=== PATIENT | female | born 1955 | race Caucasian/White ===

== ENCOUNTER → 2017-12-27 14:04 | Outpatient (CLI) | payer SELFPAY ==
--- NOTE | 2017-12-27 14:11 | HPBI_ITS ---
MAMMOGRAPHY - BILATERAL SCREENING REASON FOR EXAM: Female, 62 years old. Routine annual screening examination. PERTINENT HISTORY: Grandmother with breast cancer. TECHNIQUE: Digital bilateral breast dusty (3D mammographic acquisition) in the CC and MLO projections. 2-D mediolateral oblique (MLO) and craniocaudad (CC) views of both breasts were obtained. CAD: Full Field Digital Mammography with Computer Added Detection was performed. COMPARISON: Comparison is made with prior study dated April 29, 2008. FINDINGS: Breast Composition: The breasts are almost entirely fatty. There are no dominant masses or suspicious calcifications. No other significant abnormalities are identified. There has been no significant change since the prior study. HPBI/SCREENING MAMM (CAD), BILAT IMPRESSION: Stable bilateral screening mammogram. Yearly follow-up mammogram recommended. (A) ASSESSMENT CATEGORY: BIRADS Category 1: Negative. A letter regarding these results will be sent to the patient by the facility within 30 days. Approximately 10% of breast cancers are not detected by mammography. A normal mammogram should not delay biopsy of a clinically suspicious abnormality. [id number] Electronically Signed: Rustam Smallwood MD at 8:03 EST Tel [phone], Service support ,
== END ==
PROVIDERS: Family Provider Family Medicine; PCP Family Medicine; Visit Provider Family Medicine
DX: Z12.31 Encounter for screening mammogram for malignant neoplasm of breast (principal)
CPT/HCPCS: 77063; 77067

== ENCOUNTER → 2018-04-22 08:33 | Outpatient (CLI) | payer SELFPAY ==
[2018-04-22 09:15] LABS: Absolute Lymphocyte Count 1.38 X10^3/ul (0.83-4.51); Absolute Neutrophil Count 3.5 X10^3/uL (2.0-7.7); Basophil# 0.06 X10^3/uL; Basophil% 1.1 % (0-1); Eosinophil# 0.18 X10^3/uL; Eosinophils% 3.2 % (0-5); Hematocrit 41.1 % (37-47); Hemoglobin 14.4 g/dl (12.0-15.0); Lymphocyte # 1.38 X10^3/ul (4.0); Lymphocyte % 24.6 % (19-41); Mean Corpuscular Hgb 30.4 pg (27.0-32.0); Mean Corpuscular Volume 86.9 fL (81-99); Mean Platelet Vol. 10.9 fl (6.2-12.0); Monocyte# 0.47 X10^3/uL; Monocyte% 8.4 % (0-10); Neutrophil # 3.51 X10^3/uL (2.7-7.7); Neutrophil % 62.5 % (47-70); Platelet Count 239 K/mm3 (150-450); RBC Distribution Width CV 12.1 % (11.6-14.6); RBC Distribution Width SD 37.9 fl (35.1-43.9); Red Blood Count 4.73 M/mm3 (4.2-5.4); White Blood Count 5.6 K/mm3 (4.4-11.0)
[2018-04-22 09:17] LABS: POSITIVE COUNT NO; POSITIVE DIFFERENTIAL NO; POSITIVE MORPHOLOGY NO
[2018-04-22 09:19] LABS: Color, Urine Yellow (Yellow); Glucose, Dipstick 1000 mg/dl (Normal); Ketone-Dipstick 15 mg/dl (Negative); Leukocyte Esterase-Dipstick 25 /ul (Negative); Nitrite-Dipstick Negative (Negative); Occult Blood-Urine 10 /ul (Negative); Protein-Dipstick 30 mg/dl (Negative); Urine Bilirubin Dipstick Negative (Negative); Urine Clarity Clear (Clear); Urine Urobilinogen Normal (Normal)
[2018-04-22 10:14] LABS: ALB/GLOB Ratio 0.9 RATIO (0.9-2.4); AST(SGOT) 15 U/L (15-37); Alanine Aminotransfer ALT/SGPT 19 U/L (13-56); Albumin, Serum 3.4 g/dL (3.2-5.0); Alkaline Phosphatase 112 U/L (45-117); Anion Gap 10 (5-15); BUN 19 mg/dL (7-18); BUN/Creat Ratio 19.9 RATIO (10-20); Calcium,Total 8.7 mg/dL (8.5-10.1); Chloride 103 mmol/L (98-107); Cholesterol 231 mg/dL (200); Creatinine, Serum 0.95 mg/dL (0.55-1.02); EST Glomerular Filtration Rate 63 mL/min (>60); Est Glom Filt Rate - Afr Amer 76 mL/min (>60); Globulin 3.8 g/dL (2.2-4.2); Glucose 301 mg/dL (74-106); High Density Lipoprotein 33 mg/dL; Protein, Total 7.2 g/dL (6.4-8.2); Sodium Level 140 mmol/L (136-145); Triglycerides 495 mg/dL
== END ==
LOC: LAB 08:35
PROVIDERS: Family Provider Family Medicine; PCP Family Medicine; Visit Provider Family Medicine
DX: Z00.00 Encounter for general adult medical examination without abnormal findings (principal); E11.9 Type 2 diabetes mellitus without complications; I10 Essential (primary) hypertension; E55.9 Vitamin D deficiency, unspecified
CPT/HCPCS: 36415; 80053; 80061; 81002; 82306; 83036; 85025

== ENCOUNTER → 2018-10-17 09:35 | Outpatient (CLI) | payer SELFPAY ==
[2018-10-17 12:13] LABS: Cholesterol 225 mg/dL (200); High Density Lipoprotein 39 mg/dL; Triglycerides 268 mg/dL; Uric Acid 5.5 mg/dL (2.6-6.0); Very Low Density Lipoprotein 54 mg/dL (5-40)
[2018-10-17 12:19] LABS: Vitamin D,25 Hydroxy 47.5 ng/mL (29.95-100.01)
[2018-10-17 12:20] LABS: Hemoglobin A1c 6.4 % (4.2-6.3)
== END ==
PROVIDERS: Family Provider Family Medicine; PCP Family Medicine; Referring Provider Family Medicine; Visit Provider Family Medicine
DX: E78.5 Hyperlipidemia, unspecified (principal); E55.9 Vitamin D deficiency, unspecified; E11.9 Type 2 diabetes mellitus without complications
CPT/HCPCS: 36415; 80061; 82306; 83036; 84550

== ENCOUNTER 2019-03-11 15:40 | Emergency (ER) | payer SELFPAY ==
[2019-03-11] VITALS (7 sets, daily range): BP systolic 153–198; BP diastolic 59–104; PULSE 74–96; RESP 15–17; TEMP 36.3; O2SAT 96–98; BMI 29.5
--- NOTE | 2019-03-11 15:57 | CT_ITS ---
STUDY: CT ABDOMEN AND PELVIS WITHOUT CONTRAST REASON FOR EXAM: Female, 63 years old. Right-sided flank pain. Patient has history of kidney stones. RADIATION DOSAGE (If Supplied By Facility): CTDIvol = ( 17.67 ) mGy, DLP = ( 900.77 ) mGycm TECHNIQUE: Transaxial images were obtained from the dome of the diaphragm to the symphysis pubis without oral contrast, and without intravenous contrast. Sagittal and coronal images were reconstructed. Individualized dose optimization techniques were used for this CT. COMPARISON: CT of the abdomen and pelvis dated June 22, 2013 FINDINGS: There are curvilinear opacities at the lung bases probably secondary to subsegmental atelectasis. The visualized portions of the heart are within normal limits. Normal liver. There is a fluid fluid level in the gallbladder suggesting there may be cholelithiasis or biliary sludge. Normal spleen. There is diffuse atrophy of the pancreas. Normal bilateral adrenal glands. There is mild right-sided hydronephrosis and hydroureter secondary to proximal ureteral calculus measuring approximately 7.6 mm in greatest dimension. There are also nonobstructing right-sided renal calculi. There is a large right-sided renal cyst rising from the posterior cortex measuring up to 4.2 cm in greatest dimension. There is nonobstructing calculus in the lower pole of the left kidney measuring up to 7.1 mm. There are smaller nonobstructing calculi as well. There is no evidence for left-sided hydronephrosis, hydroureter or radiopaque ureteral calculus. There is a small hiatal hernia. There is no evidence for dilated bowel, ascites or pneumoperitoneum. Stool is visible throughout the colon with scattered diverticula. The appendix is visualized and appears normal. There is multifocal atherosclerotic calcification of the abdominal aorta with elongation and tortuosity, but without a demonstrated aneurysm. Normal inferior vena cava. Normal retroperitoneum. Normal urinary bladder. Normal visualized uterus. There is a small umbilical hernia containing fat. The bones appear osteopenic. There is mild multilevel thoracic spondylosis of the thoracic spine. There is multilevel degenerative arthropathy of the lumbar spine. CT/Abdomen/Pelvis without Cont IMPRESSION: 1. There is mild right-sided hydronephrosis and hydroureter secondary to proximal ureteral calculus. 2. Bilateral nonobstructing renal calculi. 3. Right-sided renal cyst. 4. Small hiatal hernia. Electronically Signed: Cristina Pham MD at 17:22 EDT , Service support ,
--- NOTE | 2019-03-11 16:02 | ED.VISSUMM ---
- ER Visit Summary Date of Service: 03/11/19 Chief Complaint: Flank pain History of Present Illness: The patient is a 63 F with flank pain for the past 3 days. Patient also reports decreased urine output, nausea, vomiting, and feels hot. Denies any other urinary symptoms. Denies any other GI symptoms. She does have a history of kidney stones. Physical Examination: Blood pressure 198/104. Otherwise vitals normal. Patient alert and oriented. Appears uncomfortable. Heart regular. Lungs clear. Abdomen soft and nontender. Right CVA tender to palpation. Skin appears normal. Arms and legs unremarkable. Test Results: Labs, urinalysis, and CT flank are pending. Emergency Department Course and Treatment: Patient treated with fluids, Toradol, Zofran while awaiting results. CBC normal. Creatinine at baseline 1.74. Urinalysis still pending. CT showed a proximal ureter stone on the right, 7.6 mm with right-sided hydronephrosis and hydroureter. Patient had continued pain and then required Dilaudid. This made her feel dizzy and she had continued pain. She was treated with fentanyl. Given that we are having difficulty controlling her pain, I believe she needs hospitalized. Urology is not available at this time at this hospital. The patient requested [facility]. I spoke with Dr. Marrero who accepted the patient. It was discovered that the patient did not have insurance. [facility] declined the patient. I spoke with [facility] who accepted the patient. Treatment Plan: As above Disposition: Transfer Impression: 1. Right ureteral colic This note was generated with [employer] dictation software. It may contain incorrect words, spelling, and punctuation that were not noted in review of the chart prior to signing ED Disposition - Plan for ED Patient: Disposition: [facility] Referrals: Tyree Goldman MD [Primary Care Provider] -
[2019-03-11 16:10] LABS: Absolute Lymphocyte Count 1.32 X10^3/ul (0.83-4.51); Absolute Neutrophil Count 7.6 X10^3/uL (2.0-7.7); Basophil# 0.03 X10^3/uL; Basophil% 0.3 % (0-1); Eosinophil# 0.15 X10^3/uL; Eosinophils% 1.5 % (0-5); Hematocrit 37.5 % (37-47); Hemoglobin 12.7 g/dl (12.0-15.0); Lymphocyte # 1.32 X10^3/ul (4.0); Lymphocyte % 13.1 % (19-41); Mean Corp Hgb Conc 33.9 g/gl (32-36); Mean Corpuscular Hgb 29.7 pg (27.0-32.0); Mean Corpuscular Volume 87.6 fL (81-99); Mean Platelet Vol. 9.6 fl (6.2-12.0); Monocyte# 0.95 X10^3/uL; Monocyte% 9.4 % (0-10); Neutrophil # 7.63 X10^3/uL (2.7-7.7); Neutrophil % 75.5 % (47-70); Platelet Count 253 K/mm3 (150-450); RBC Distribution Width CV 12.5 % (11.6-14.6); RBC Distribution Width SD 39.9 fl (35.1-43.9); Red Blood Count 4.28 M/mm3 (4.2-5.4); White Blood Count 10.1 K/mm3 (4.4-11.0)
[2019-03-11 16:11] LABS: POSITIVE COUNT NO; POSITIVE DIFFERENTIAL NO; POSITIVE MORPHOLOGY NO
[2019-03-11] MEDS: 0.9% Normal Saline 1,000 ML 1000 ML IV (16:19)
[2019-03-11] MEDS: Ketorolac 30 MG/ML Syringe IV (16:19)
[2019-03-11] MEDS: Ondansetron 4 MG/2 ML Vial IV (16:19)
[2019-03-11 16:24] LABS: Anion Gap 8 (5-15); BUN 27 mg/dL (7-18); BUN/Creat Ratio 15.5 RATIO (10-20); Calcium,Total 9.3 mg/dL (8.5-10.1); Chloride 103 mmol/L (98-107); Creatinine, Serum 1.74 mg/dL (0.55-1.02); EST Glomerular Filtration Rate 31 mL/min (>60); Est Glom Filt Rate - Afr Amer 38 mL/min (>60); Estimated Creatinine Clearance 30.58 ml/min; Glucose 89 mg/dL (74-106); Potassium 4.1 mmol/L (3.5-5.1); Sodium Level 138 mmol/L (136-145)
[2019-03-11] MEDS: HYDROmorphone 1 MG/ML Syringe IV (17:54)
[2019-03-11 18:57] LABS: Color, Urine Yellow (Yellow); Glucose, Dipstick Normal (Normal); Ketone-Dipstick 15 mg/dl (Negative); Leukocyte Esterase-Dipstick 500 /ul (Negative); Nitrite-Dipstick Negative (Negative); Occult Blood-Urine 250 /ul (Negative); Protein-Dipstick 30 mg/dl (Negative); Specific Gravity, Urine 1.025 (1.002-1.030); Urine Bilirubin Dipstick Negative (Negative); Urine Clarity Cloudy (Clear); Urine Urobilinogen Normal (Normal)
[2019-03-11] MEDS: fentaNYL 100 MCG/2 ML Ampul 50 MCG IV (19:26)
[2019-03-11 20:01] LABS: Bacteria RARE /hpf (None Seen); Mucous, Urine 1+ /hpf (<or=2+); Red Blood Cells-Urine 10-25 SEEN /hpf (0-5); Squamous Epithelial Cells - UA 0-5 SEEN /hpf (5-10); White Blood Cells 10-25 SEEN /hpf (0-5)
--- NOTE | 2019-03-11 21:04 | ED.RN ---
[facility] UNABLE TO ACCEPT BECAUSE OF SELF-PAY. DR HERNANDEZ SPEAKING WITH [facility] AT THIS TIME
--- NOTE | 2019-03-11 21:37 | ED.RN ---
DR MATTA ACCEPTING
--- NOTE | 2019-03-11 22:38 | ED.RN ---
pt is transfer to [facility] by private vehicle. report called to crissy howard. IV was left in left ac for transport with dr machuca's permission. recieving facility aware. geronimo bennett rn [phone]
== END 2019-03-11 22:49 | disposition short-term general hospital (02) ==
PROVIDERS: Emergency Provider Emergency Medicine; Family Provider Family Medicine; PCP Family Medicine
DX: N13.2 Hydronephrosis with renal and ureteral calculous obstruction (principal); N28.1 Cyst of kidney, acquired; K44.9 Diaphragmatic hernia without obstruction or gangrene; E11.9 Type 2 diabetes mellitus without complications; I10 Essential (primary) hypertension; Z87.442 Personal history of urinary calculi; Z79.84 Long term (current) use of oral hypoglycemic drugs; Z79.899 Other long term (current) drug therapy
CPT/HCPCS: 74176; 80048; 81001; 85025; 96361; 96374; 96375; 99284; A4216; J2405

== ENCOUNTER → 2019-11-04 11:24 | Outpatient (CLI) | payer MEDICARE, SELFPAY ==
[2019-03-11 15:41] VITALS: BMI 29.5
[2019-11-04 12:42] LABS: Absolute Lymphocyte Count 1.56 X10^3/uL (0.83-4.51); Absolute Neutrophil Count 4.7 X10^3/uL (2.0-7.7); Basophil# 0.07 X10^3/uL; Eosinophil# 0.35 X10^3/uL; Eosinophils% 4.8 % (0-5); Hematocrit 36.6 % (37-47); Lymphocyte # 1.56 X10^3/ul (4.0); Lymphocyte % 21.5 % (19-41); Mean Corp Hgb Conc 32.8 g/dL (32-36); Mean Corpuscular Hgb 29.4 pg (27.0-32.0); Mean Corpuscular Volume 89.7 fL (81-99); Mean Platelet Vol. 10.3 fl (6.2-12.0); Monocyte# 0.61 X10^3/uL; Monocyte% 8.4 % (0-10); NRBC Flagged by Analyzer 0 % (0-5); Neutrophil # 4.65 X10^3/uL (2.7-7.7); Neutrophil % 63.9 % (47-70); Platelet Count 281 K/mm3 (150-450); RBC Distribution Width CV 11.9 % (11.6-14.6); RBC Distribution Width SD 38.6 fl (35.1-43.9); Red Blood Count 4.08 M/mm3 (4.2-5.4); White Blood Count 7.3 K/mm3 (4.4-11.0)
[2019-11-04 12:52] LABS: Color, Urine Yellow (Yellow); Glucose, Dipstick Normal (Normal); Ketone-Dipstick Negative (Negative); Leukocyte Esterase-Dipstick 25 /ul (Negative); Nitrite-Dipstick Negative (Negative); Occult Blood-Urine Negative /ul (Negative); Protein-Dipstick 15 mg/dl (Negative); Urine Bilirubin Dipstick Negative (Negative); Urine Clarity Clear (Clear); Urine Urobilinogen Normal (Normal)
[2019-11-04 13:05] LABS: Hemoglobin A1c 6.6 % (4.2-6.3); Vitamin D,25 Hydroxy 53.4 ng/mL (29.95-100.01)
== END ==
PROVIDERS: Family Provider Family Medicine; PCP Family Medicine; Referring Provider Family Medicine
DX: Z00.00 Encounter for general adult medical examination without abnormal findings (principal); I10 Essential (primary) hypertension; E55.9 Vitamin D deficiency, unspecified; E11.9 Type 2 diabetes mellitus without complications
CPT/HCPCS: 36415; 81002; 82306; 83036; 85025

== ENCOUNTER 2020-02-05 14:09 | Emergency (ER) | payer MEDICARE, SELFPAY ==
[2019-03-11 15:41] VITALS: BMI 29.5
[2020-02-05 14:10] VITALS: BP 150/86; PULSE 74; RESP 18; TEMP 36.1; O2SAT 97; BMI 32.3
--- NOTE | 2020-02-05 14:55 | ED.VIS.INJ ---
History of Present Illness Chief Complaint: Lower Extremity Injury Informant: Patient, Significant Other Onset: Hours Mechanism/Context: Blunt Injury Quality of Pain: Aching, Throbbing Location: Right and left leg and left ankle Current Severity: Mild Maximum Severity: Severe Worsened by: Palpation and weightbearing Relieved by: Nothing Associated Symptoms: Loss of function, Inability to ambulate. Negative for: Parasthesias, Weakness, Loss of consciousness, Amnesia Narrative: Patient is a 64-year-old woman with history of hypertension who was injured by a bull calf. The calf was agitated because he was deformed and castrated. Patient complains of pain and bruises to the right and left anterior leg and left ankle. She states she is unable to bear weight on the left side. She has significant pain on the right when she attempts to bear weight. She declined pain medicine. She denies paresthesia, anesthesia motors. She denies thigh or hip pain. Denies pelvic pain. Denies abdominal pain. There is no injury to the chest, back, upper extremities or head. She is not on an anticoagulant. This occurred prior to arrival. Tetanus Immunization: 5-10 years Prior similar symptoms: No Recent Illness/Hospitalization: No - Past Medical History (1) Hypertension Status: Chronic Past Medical History - Allergies and Home Meds Allergies/Adverse Reactions: Allergies acetaminophen [From Vicodin] Allergy (Verified 01/02/16 16:08) Chest tightness hydrocodone bitartrate [From Vicodin] Allergy (Verified 01/02/16 16:08) Chest tightness Primary Care Physician: Tyree Goldman MD [Primary Care Provider] - Prior records reviewed: Yes Surgical History: noncontributory Lives: Spouse/ Significant Other Smoking Status: Never smoker Alcohol: None Drugs: None Review of Systems General: Denies: Chills, Fever, Sweats Eyes: Denies: Visual changes - bilaterally, Blurred Vision - bilaterally ENT: Denies: Rhinorrhea, Sore throat Cardiovascular: Denies: Chest pain, Palpitations Respiratory: Denies: Dyspnea, Dyspnea on exertion Gastrointestinal: Denies: Abdominal pain, Nausea, Vomiting Musculoskeletal: Reports: Swelling, Extremity Pain. Denies: Myalgias, Arthralgias, Neck pain, Back pain Skin: Reports: Wounds - Multiple contusions anterior right and left leg.. Denies: Rash Neurological: Denies: Headache, Weakness, Parasthesia, Numbness Psych: Denies: Depression Endocrine: Denies: Polyuria, Polydipsia Hematologic: Denies: Easy bruising, Easy bleeding Allergy: Denies: Uticaria Physical Exam Vital Signs/Narrative: Vital Signs Temp Pulse Resp BP Pulse Ox 02/05/20 14:10 97.0 F L 74 18 150/86 H 97 Inital Vital Signs reviewed: Yes General: Well nourished, Well developed, Obese Head: Normocephalic, Atraumatic. Negative for: Trauma, Tenderness Eyes: Perrl, EOMI. Negative for: Pale conjunctiva, Scleral icterus ENT: TM's clear, No hemotympanum or drainage, No trauma Neck: Nontender, Full ROM. Negative for: Spinal Tenderness, Paraspinal Tenderness Cardiovascular: Regular rate, Regular rhythm, No murmurs, Normal S1, Normal S2 Respiratory: No distress, CTA bilaterally, Chest nontender Abdomen: Soft, Nontender, Nondistended, Normal bowel sounds Back: Nontender. Negative for: CVA Tenderness - Right, CVA Tenderness - Left Extremeties: Has multiple contusions anterior right and left leg. There is pain palpation over the fibular head right and left. Greater on the right side. There is significant pain over the lateral malleolus left ankle. There is no laxity with drawer testing either side. There is pain outpatient over the medial malleolus both sides. There is no abnormality noted the foot. There is no swelling or evidence of trauma. DP pulses palpable bilaterally. There is no pain the patient the base of the fifth metatarsal. Skin: Normal color, No rash Neurological: Alert, Oriented x3, Cranial nerves II-XII grossly intact, Normal Strength, Normal Sensation Psychological: Normal affect - Glascow Coma Scale Eye Opening: Spontaneous Motor: Obeys Commands Verbal: Oriented Coma Scale Total: 15 Diagnostic/Tx/Re-eval Chest X-Ray - ED: Read by ED Physician, - - Three-view x-ray of the left ankle reveals osteophyte of the medial malleolus and soft tissue swelling. There is no months of fracture, subluxation or dislocation. There is no effusion. The base of the fifth metatarsal is normal. 2 view x-ray of the left and right tibia and fibula were obtained with no evidence of fracture or soft tissue swelling. - Medical Decision Making Since patient is unable to bear weight and there is evidence of trauma to the right and left leg as well as left ankle images were obtained to evaluate for contusion versus fracture. ED Disposition - Plan for ED Patient: Disposition: Home or Assisted Living Instructions: CONTUSION, Lower Extremity, Sprain, Ankle, with X-Ray Referrals: Tyree Goldman MD [Primary Care Provider] - 1 Week if not improving
--- NOTE | 2020-02-05 15:00 | RAD_ITS ---
STUDY: X-RAY - RIGHT TIBIA AND FIBULA REASON FOR EXAM: Female, 64 years old. PT RAN OVER BY A BULL TWICE TODAY. BILATERAL LOWER EXTREMITY PAIN/EDEMA. N/T LEFT TOES TECHNIQUE: 2 view(s) of the tibia and fibula were obtained. COMPARISON: None. FINDINGS: Normal visualized tibia. Normal visualized fibula. Posterior soft tissue swelling RAD/Tibia & Fibula 2 Views IMPRESSION: Posterior soft tissue swelling. Electronically Signed: Rustam Smallwood, at 15:48 EDT , Service support ,
--- NOTE | 2020-02-05 15:00 | RAD_ITS ---
STUDY: X-RAY - LEFT ANKLE REASON FOR EXAM: Female, 64 years old. PT RAN OVER BY A BULL TWICE TODAY. BILATERAL LOWER EXTREMITY PAIN/EDEMA. N/T LEFT TOES TECHNIQUE: 3 view(s) of the ankle. COMPARISON: None. FINDINGS: Normal visualized distal tibia and fibula. Normal medial and lateral malleoli. Degenerative changes at the tibial talar joint with spur formation. Plantar spur. Talar beak. The visualized subtalar, talonavicular, calcaneocuboid and tarsal articulations are normal. Soft tissue swelling. RAD/Ankle min 3 Views IMPRESSION: Soft tissue swelling. Degenerative changes at the distal tibial talar joint. Electronically Signed: Rustam Smallwood, at 15:49 EDT , Service support ,
--- NOTE | 2020-02-05 15:00 | RAD_ITS ---
STUDY: X-RAY - LEFT TIBIA AND FIBULA REASON FOR EXAM: Female, 64 years old. PT RAN OVER BY A BULL TWICE TODAY. BILATERAL LOWER EXTREMITY PAIN/EDEMA. N/T LEFT TOES TECHNIQUE: 2 view(s) of the tibia and fibula were obtained. COMPARISON: None. FINDINGS: Normal visualized tibia. Normal visualized fibula. Soft tissue swelling. RAD/Tibia & Fibula 2 Views IMPRESSION: Soft tissue swelling. Electronically Signed: Rustam Smallwood, at 15:48 EDT , Service support ,
== END 2020-02-05 15:49 | disposition home or self-care (01) ==
PROVIDERS: Emergency Provider Emergency Medicine; PCP Family Medicine
DX: S93.492A Sprain of other ligament of left ankle, initial encounter (principal); S80.11XA Contusion of right lower leg, initial encounter; S80.12XA Contusion of left lower leg, initial encounter; E66.9 Obesity, unspecified; W55.22XA Struck by cow, initial encounter; Y93.9 Activity, unspecified; Y92.9 Unspecified place or not applicable; I10 Essential (primary) hypertension; Z79.899 Other long term (current) drug therapy
CPT/HCPCS: 73590; 73610; 99282

== ENCOUNTER 2020-04-19 22:11 | Inpatient (IN) | payer MEDICARE, SELFPAY ==
[2020-04-19 22:11] VITALS: BP 182/101; PULSE 87; RESP 18; TEMP 35.9; O2SAT 93; BMI 32.6
--- NOTE | 2020-04-19 22:40 | ED.DCSUM_ITS ---
History of Present Illness Chief Complaint: Abd Pain Narrative: Patient is a 64-year-old female who presents with abdominal pain. This is been present for couple of days. Her pain is in the mid left abdomen and does radiate to the flank. She currently rates it as 10 out of 10. It is relieved with applying some pressure. She denies any associated symptoms such as fevers nausea vomiting diarrhea dysuria frequency urgency. She has a history of prior kidney stones but notes that this does not feel similar. She has never had pain like this before. She denies recent illness. She has a history of laparoscopy but no other abdominal surgeries. No history of diverticulitis. Past Medical History - Allergies and Home Meds Allergies/Adverse Reactions: Allergies acetaminophen [From Vicodin] Allergy (Verified 04/19/20 22:21) Chest tightness hydrocodone bitartrate [From Vicodin] Allergy (Verified 04/19/20 22:21) Chest tightness Primary Care Physician: Tyree Goldman MD [Primary Care Provider] - Past Medical History: - - Diabetes, hypertension, hyperlipidemia Surgical History: noncontributory Smoking Status: Never smoker Review of Systems All systems negative except as indicated General: Denies: Fever Eyes: Denies: Visual changes - bilaterally ENT: Denies: Bilateral ear pain Cardiovascular: Denies: Chest pain Respiratory: Denies: Dyspnea Gastrointestinal: Reports: Abdominal pain. Denies: Nausea, Vomiting, Diarrhea Musculoskeletal: Denies: Extremity Pain Skin: Denies: Rash Neurological: Denies: Headache Hematologic: Denies: Easy bruising Allergy: Denies: Uticaria Physical Exam Vital Signs/Narrative: Vital Signs Temp Pulse Resp BP Pulse Ox 04/19/20 22:11 96.6 F L 87 18 182/101 H 93 Inital Vital Signs reviewed: Yes General: Well nourished, Well developed Head: Normocephalic Eyes: EOMI ENT: Moist mucous membranes Neck: Supple Cardiovascular: Regular rate, Regular rhythm Respiratory: No distress, CTA bilaterally Abdomen: Soft, Tender - Mid left abdominal tenderness. Negative for: Guarding, Rebound tenderness Back: Nontender. Negative for: CVA tenderness Skin: Normal color Neurological: Alert Psychological: Normal affect Diagnostic/Tx/Re-eval Impressions Abdomen/Pelvis CT 04/20/20 00:30 IMPRESSION: There are bilateral kidney stones. There is an 8 mm stone in the proximal LEFT ureter causing moderate LEFT hydronephrosis. There is a 4.6 cm cyst in the RIGHT kidney. Normal visualized stomach. Normal small intestine. Normal colon. The appendix is visualized and appears normal. Uterus is intact. There is NO ascites, free air, abscess or adenopathy. Electronically Signed: Glenn Murphy MD at 0:58 EDT , Service support , 04/20/20 00:30 Abdomen/Pelvis WITH Contrast [CT] Stat Laboratory Results 04/19/20 04/19/20 04/19/20 22:20 22:20 22:25 WBC 10.6 RBC 4.31 Hgb 12.6 Hct 38.5 MCV 89.3 MCH 29.2 MCHC 32.7 RDW Std Deviation 39.8 RDW Coeff of Jessica 12.1 Plt Count 297 MPV 10.3 Immature Gran % (Auto) 0.300 Neut % (Auto) 70.4 H Lymph % (Auto) 17.4 L [place] % (Auto) 8.3 Eos % (Auto) 2.9 Baso % (Auto) 0.7 Absolute Neuts (auto) 7.5 Absolute Lymphs (auto) 1.84 Nucleated RBC % 0 Sodium 142 Potassium 4.0 Chloride 107 Carbon Dioxide 28.0 Anion Gap 7 BUN 21 H Creatinine 1.60 H Estim Creat Clear Calc 32.82 Est GFR (MDRD) Af Amer 42 L Est GFR (MDRD) Non-Af 34 L BUN/Creatinine Ratio 13.1 Glucose 102 Calcium 9.5 Total Bilirubin 0.40 AST 17 ALT 23 Alkaline Phosphatase 88 Total Protein 7.7 Albumin 3.7 Globulin 4.0 Albumin/Globulin Ratio 0.9 Lipase 207 Urine Color Yellow Urine Clarity Sl. Cloudy Urine pH 5.0 Ur Specific [place] 1.015 Urine Protein 15 H Urine Glucose (UA) Normal Urine Ketones Negative Urine Occult Blood 250 H Urine Nitrite Negative Urine Bilirubin Negative Urine Urobilinogen Normal Ur Leukocyte Esterase 500 H Urine RBC 10-25 SEEN Urine WBC 25-50 SEEN Ur Squamous Epith Cells 0-5 SEEN Urine Bacteria RARE Urine Mucus 0 SEEN - Medical Decision Making Initial suspicion was for diverticulitis. A CT with oral and IV contrast was ordered. Laboratory studies and CT imaging as above. Patient has a large proximal left ureteral calculus. She was initially given morphine and Zofran with little to no change in her symptoms. She was given 15 mg of IV Toradol and had mild improvement in pain from 10 out of 10 down to 7 out of 10. Given the size and location of the calculus and significant pain despite morphine and Toradol she will likely need intervention. I did speak to urology on-call who agrees to admit. Her urinalysis initially does show pyuria and she was given IV Rocephin. ED Disposition - Plan for ED Patient: Disposition: [facility] [place] Diagnosis: Left ureteral calculus Referrals: Tyree Goldman MD [Primary Care Provider] -
[2020-04-19] MEDS: Ondansetron 4 MG/2 ML Vial IV (22:53)
[2020-04-19] MEDS: 0.9% Normal Saline 1,000 ML 1000 ML IV (22:53)
[2020-04-19] MEDS: Morphine 4 MG/ML Syringe IV (22:54)
[2020-04-19 22:57] LABS: Mucous, Urine 0 SEEN /hpf (<or=2+)
[2020-04-19 23:00] LABS: Absolute Lymphocyte Count 1.84 X10^3/uL (0.83-4.51); Absolute Neutrophil Count 7.5 X10^3/uL (2.0-7.7); Basophil# 0.07 X10^3/uL; Basophil% 0.7 % (0-1); Eosinophil# 0.31 X10^3/uL; Eosinophils% 2.9 % (0-5); Hematocrit 38.5 % (37-47); Hemoglobin 12.6 g/dL (12.0-15.0); Lymphocyte # 1.84 X10^3/ul (4.0); Lymphocyte % 17.4 % (19-41); Mean Corp Hgb Conc 32.7 g/dL (32-36); Mean Corpuscular Hgb 29.2 pg (27.0-32.0); Mean Corpuscular Volume 89.3 fL (81-99); Mean Platelet Vol. 10.3 fl (6.2-12.0); Monocyte# 0.88 X10^3/uL; Monocyte% 8.3 % (0-10); NRBC Flagged by Analyzer 0 % (0-5); Neutrophil # 7.45 X10^3/uL (2.7-7.7); Neutrophil % 70.4 % (47-70); Platelet Count 297 K/mm3 (150-450); RBC Distribution Width CV 12.1 % (11.6-14.6); RBC Distribution Width SD 39.8 fl (35.1-43.9); Red Blood Count 4.31 M/mm3 (4.2-5.4); White Blood Count 10.6 K/mm3 (4.4-11.0)
[2020-04-19 23:04] LABS: Color, Urine Yellow (Yellow); Glucose, Dipstick Normal (Normal); Ketone-Dipstick Negative (Negative); Leukocyte Esterase-Dipstick 500 /ul (Negative); Nitrite-Dipstick Negative (Negative); Occult Blood-Urine 250 /ul (Negative); Protein-Dipstick 15 mg/dl (Negative); Specific Gravity, Urine 1.015 (1.002-1.030); Urine Bilirubin Dipstick Negative (Negative); Urine Clarity Sl. Cloudy (Clear); Urine Urobilinogen Normal (Normal)
[2020-04-19 23:10] LABS: ALB/GLOB Ratio 0.9 RATIO (0.9-2.4); AST(SGOT) 17 U/L (15-37); Alanine Aminotransfer ALT/SGPT 23 U/L (13-56); Albumin, Serum 3.7 g/dL (3.2-5.0); Alkaline Phosphatase 88 U/L (45-117); Anion Gap 7 (5-15); BUN 21 mg/dL (7-18); BUN/Creat Ratio 13.1 RATIO (10-20); Calcium,Total 9.5 mg/dL (8.5-10.1); Chloride 107 mmol/L (98-107); EST Glomerular Filtration Rate 34 mL/min (>60); Est Glom Filt Rate - Afr Amer 42 mL/min (>60); Estimated Creatinine Clearance 32.82 ml/min; Glucose 102 mg/dL (74-106); Lipase 207 U/L (73-393); Protein, Total 7.7 g/dL (6.4-8.2); Sodium Level 142 mmol/L (136-145)
[2020-04-19 23:16] LABS: White Blood Cells 25-50 SEEN /hpf (0-5)
[2020-04-19 23:17] LABS: Bacteria RARE /hpf (None Seen); Red Blood Cells-Urine 10-25 SEEN /hpf (0-5); Squamous Epithelial Cells - UA 0-5 SEEN /hpf (5-10)
[2020-04-20] VITALS (7 sets, daily range): BP systolic 146–172; BP diastolic 74–95; PULSE 61–75; RESP 15–18; TEMP 36.6–37; O2SAT 95–99; BMI 32.6; BMI 32.7
--- NOTE | 2020-04-20 00:30 | CT_ITS ---
STUDY: CT ABDOMEN AND PELVIS WITH CONTRAST REASON FOR EXAM: Female, 64 years old. LT MID ABD AND flank pain today. Hx of kidney stones with lithotripsy, HTN and diabetes RADIATION DOSAGE (If Supplied By Facility): CTDIvol = ( 18.95 ) mGy, DLP = ( 2098.63 ) mGycm TECHNIQUE: Transaxial images were obtained from the dome of the diaphragm to the symphysis pubis without oral contrast. Oral and amp; IV Gastrografin and amp; 75mL Isovue-370 was administered. Sagittal and coronal images were reconstructed. Individualized dose optimization techniques were used for this CT. COMPARISON: None. FINDINGS: The visualized lung bases are unremarkable. The visualized portions of the heart are within normal limits. Normal liver. Normal gallbladder and extrahepatic biliary system. Normal spleen. Normal pancreas. Normal bilateral adrenal glands. There are bilateral kidney stones. There is an 8 mm stone in the proximal LEFT ureter causing moderate LEFT hydronephrosis. There is a 4.6 cm cyst in the RIGHT kidney. Normal visualized stomach. Normal small intestine. Normal colon. The appendix is visualized and appears normal. Normal abdominal aorta. Normal inferior vena cava. Normal retroperitoneum. Normal urinary bladder. Uterus is intact. There is NO ascites, free air, abscess or adenopathy. Normal abdominal wall. Normal osseous structures. CT/Abdomen/Pelvis WITH Contrast IMPRESSION: There are bilateral kidney stones. There is an 8 mm stone in the proximal LEFT ureter causing moderate LEFT hydronephrosis. There is a 4.6 cm cyst in the RIGHT kidney. Normal visualized stomach. Normal small intestine. Normal colon. The appendix is visualized and appears normal. Uterus is intact. There is NO ascites, free air, abscess or adenopathy. Electronically Signed: Glenn Murphy MD at 0:58 EDT , Service support ,
[2020-04-20] MEDS: Ketorolac 15 MG/ML Vial IV ×4 (00:45→23:19)
[2020-04-20] MEDS: Ceftriaxone 1 GM/50 ML BAG IV (01:31)
[2020-04-20] MEDS: 0.9% Normal Saline 1,000 ML 100 ML IV ×3 (04:59→23:20)
--- NOTE | 2020-04-20 06:00 | EKG12_ITS ---
Test Reason : PREOP Blood Pressure : / mmHG Vent. Rate : 060 BPM Atrial Rate : 060 BPM P-R Int : 162 ms QRS Dur : 092 ms QT Int : 448 ms P-R-T Axes : 051 -04 003 degrees QTc Int : 448 ms Normal sinus rhythm Normal ECG No previous ECGs available Confirmed by IVA FELDER, LEN ([id number]), news assignment editor ANOTNIO VALDEZ ([id number]) on 04/25/2020 11:35:08 AM Referred By: Evaristo Downing Confirmed By:ANGELA ENRIQUE MD
[2020-04-20 06:45] LABS: Bedside Glucose 84 mg/dL (70-110)
--- NOTE | 2020-04-20 07:53 | PCM.HP.STD ---
Problem List (1) Left ureteral calculus Status: Acute History of Present Illness Date of Admission: 04/20/20 Chief Complaint: Left obstructing kidney stone The patient is a 64 year old female who presents with a large proximal left ureteral calculi causing hydronephrosis and obstruction she was admitted for pain control she is also diabetic. Past Medical History Past Medical History (Chronic Problems): Chronic Problems Hypertension (Chronic) Allergies acetaminophen [From Vicodin] Allergy (Verified 04/20/20 04:06) Chest tightness pt can take regular Tylenol but not Vicodin hydrocodone bitartrate [From Vicodin] Allergy (Verified 04/19/20 22:21) Chest tightness Home Medications: Ambulatory Orders Medication Instructions Recorded Ergocalciferol [Vitamin D] 50,000 unit PO TH 03/11/19 Glimepiride 4 mg PO DAILY 03/11/19 Lisinopril [Zestril] 10 mg PO DAILY 03/11/19 Metformin HCl 1,000 mg PO DAILY 03/11/19 Allopurinol [Zyloprim] 300 mg PO DAILY 02/05/20 Sertraline HCl [Zoloft] 25 mg PO DAILY 02/05/20 Amlodipine [Norvasc] 5 mg PO DAILY 04/19/20 Hydrocodone Bitart/Apap 5-325 1 tab PO Q4H PRN PRN 04/20/20 [[place] 5MG-325MG] Surgical History: noncontributory Psychiatric History: No pertinent psych hx GYM MANAGER History: No pertinent GYM MANAGER history Lives: With Family Smoking Status: Never smoker Tobacco Use: Non-smoker Alcohol: None Drugs: None - *Family History Maternal History Items: No pertinent history Review of Systems Constitutional: Denies: Chills, Fever, Weight Change HEENT: Denies: Head Aches, Sinus Congestion, Sinus Drainage Cardiovascular: Denies: Chest Pain, Palpitations Respiratory: Denies: Cough, Shortness of breath at rest, Sputum production Gastrointestinal: Denies: Abdominal Pain, Nausea, Vomiting Genitourinary: Denies: Dysuria Musculoskeletal: Denies: Joint Pain, Joint Tenderness Skin: Denies: Rash, Wounds Neurological: Denies: Numbness, Tingling, Focal weakness Psychiatric: Denies: Anxiety, Depression, Homicidal Ideations, Suicidal Ideations Hematologic/ Lymphatic: Denies: Easy Bruising, Easy Bleeding VTE Information - Inpt Only VTE Present on Admission: No VTE Mechan Device Prophylaxis: SCD's Patient Problems: Active and Suspected Problems Left ureteral calculus (Acute) - Physical Exam Vitals/I&O's: Vital Signs Temp Pulse Resp BP Pulse Ox 97.8 F 61 15 165/84 H 99 04/20/20 04:29 04/20/20 04:29 04/20/20 04:29 04/20/20 04:29 04/20/20 04:29 Oxygen Delivery Method Room Air Weight: 91.8 kg Body Mass Index (BMI) 32.6 Intake and Output for Last 24 Hours 04/18/20 04/19/20 04/20/20 23:59 23:59 23:59 Intake Total 1000 / 1000 50 / 50 Balance 1000 / 1000 50 / 50 General: Alert, Oriented x3, Cooperative HEENT: Atraumatic, PERRLA, EOMI, Normocephalic Neck: Supple, No JVD, Negative Carotid Bruits Lungs: Clear to auscultation, Normal air movement Cardiovascular: Regular rate, No murmurs Abdomen: Bowel Sounds Present, Soft, Non Tender Extremities: No edema, Capillary Refill Less than 3 Seconds Skin: No rashes, No breakdown Musculoskeletal: No Tenderness to Palpation of Joints or Extremities Neurological: Cranial nerves II-XII grossly intact Psych/Mental Status: Normal Affect, Appropriate Microbiology Past 72 Hours 04/20/20 01:35 Mucosa - Nasopharyngeal Coronavirus COVID-19 PCR - Final Laboratory Results 04/19/20 22:20: WBC 10.6, RBC 4.31, Hgb 12.6, Hct 38.5, MCV 89.3, MCH 29.2, MCHC 32.7, RDW Std Deviation 39.8, RDW Coeff of Jessica 12.1, Plt Count 297, MPV 10.3, Immature Gran % (Auto) 0.300, Neut % (Auto) 70.4 H, Lymph % (Auto) 17.4 L, [place] % (Auto) 8.3, Eos % (Auto) 2.9, Baso % (Auto) 0.7, Absolute Neuts (auto) 7.5, Absolute Lymphs (auto) 1.84, Nucleated RBC % 0 04/19/20 22:20: Sodium 142, Potassium 4.0, Chloride 107, Carbon Dioxide 28.0, Anion Gap 7, BUN 21 H, Creatinine 1.60 H, Estim Creat Clear Calc 32.82, Est GFR (MDRD) Af Amer 42 L, Est GFR (MDRD) Non-Af 34 L, BUN/Creatinine Ratio 13.1, Glucose 102, Calcium 9.5, Total Bilirubin 0.40, AST 17, ALT 23, Alkaline Phosphatase 88, Total Protein 7.7, Albumin 3.7, Globulin 4.0, Albumin/Globulin Ratio 0.9, Lipase 207 04/19/20 22:25: Urine Color Yellow, Urine Clarity Sl. Cloudy, Urine pH 5.0, Ur Specific [place] 1.015, Urine Protein 15 H, Urine Glucose (UA) Normal, Urine Ketones Negative, Urine Occult Blood 250 H, Urine Nitrite Negative, Urine Bilirubin Negative, Urine Urobilinogen Normal, Ur Leukocyte Esterase 500 H, Urine RBC 10-25 SEEN, Urine WBC 25-50 SEEN, Ur Squamous Epith Cells 0-5 SEEN, Urine Bacteria RARE, Urine Mucus 0 SEEN 04/20/20 06:42: POC Glucose 84 04/20/20 06:59: Hemoglobin A1c Pending Current Medications Hydrocodone Bitart/Acetaminophen ([place] 5mg-325mg) tablet PO Q4H PRN PRN PRN Reason: P Allopurinol (Zyloprim) 300 mg PO DAILY [facility] Amlodipine Besylate (Norvasc) 5 mg PO DAILY [facility] Ergocalciferol (Vitamin D) 50,000 unit PO TH [facility] Glimepiride (Amaryl) 4 mg PO DAILY [facility] Sodium Chloride () 1,000 mls @ 100 mls/hr IV .Q10H [facility] Last Admin: 04/20/20 04:59 Dose: 100 mls/hr Documented by: Ketorolac Tromethamine (Toradol (Bkc)) 15 mg IV Q6H PRN PRN PRN Reason: Pain Score 1-10/10 Stop: 04/25/20 04:20 Last Admin: 04/20/20 04:59 Dose: 15 mg Documented by: Lisinopril (Zestril) 10 mg PO DAILY [facility] Metformin HCl (Glucophage) 1,000 mg PO DAILY [facility] Morphine Sulfate () 2 mg IV Q2H PRN PRN PRN Reason: Pain Score 6-10/10 Non-Formulary Medication (Sertraline Hcl) 25 mg PO DAILY [facility] Ondansetron HCl (Zofran) 4 mg IV Q6H PRN PRN PRN Reason: NAUSEA/VOMITING Sodium Chloride () 10 - 40 ml IV UD PRN PRN Reason: SALINE FLUSH Assessment/Plan All Active Problems Left ureteral calculus (Acute) Sprain of ankle or foot, right (Acute) Admit the patient for pain control, she can have a regular diet today, should be added on for the schedule for tomorrow for cystoscopy and left stent placement. We will check a KUB in the morning to see the stone has moved.
[2020-04-20 08:06] LABS: Hemoglobin A1c 5.9 % (3.8-5.6)
--- NOTE | 2020-04-20 08:34 | CASEMGMT ---
Social Work Note Per dean of admissions questions, pt has completed HCPOA and LW but haven't provided copy to [facility] and unable to bring in copy. Emelina Lee BREAD JOCKEY, TIRE MAKER
[2020-04-20] MEDS: metFORMIN HCl 500 MG Tablet 1000 MG PO (09:16)
[2020-04-20] MEDS: Sertraline 50 MG Tablet 25 MG PO (09:16)
[2020-04-20] MEDS: amLODIPine 5 MG Tablet PO (09:17)
[2020-04-20] MEDS: Glimepiride 4 MG Tablet PO (09:17)
[2020-04-20] MEDS: Allopurinol 300 MG Tablet PO (09:17)
[2020-04-20] MEDS: Lisinopril 10 MG Tablet PO (09:17)
[2020-04-20] MEDS: 0.9% Saline Lock 10 ML Syringe IV (13:45)
[2020-04-21] VITALS (8 sets, daily range): BP systolic 131–166; BP diastolic 71–76; PULSE 64–69; RESP 16–18; TEMP 36.5–37; O2SAT 94–98; BMI 32.6
[2020-04-21] MEDS: Ketorolac 15 MG/ML Vial IV (05:53)
[2020-04-21] MEDS: Dextrose 50%-Water 25 GM/50 ML DISP.SYRIN IV (06:07)
[2020-04-21 06:30] LABS: Bedside Glucose 60 mg/dL (70-110)
[2020-04-21 06:30] LABS: Bedside Glucose 107 mg/dL (70-110)
--- NOTE | 2020-04-21 07:00 | RAD_ITS ---
STUDY: X-RAY - ABDOMEN/PELVIS REASON FOR EXAM: Female, 64 years old. LT SIDE K.S. TECHNIQUE: Single AP view of the abdomen / pelvis. COMPARISON: Comparison is made with prior examination dated September 04, 2011. FINDINGS: Normal visualized lung bases. Large amount of oral contrast is seen within the right hemicolon limiting the examination. Questionable 7 mm calculus overlying the transverse processes of the L3 vertebrae on the left side. There are calcified phleboliths in the pelvis. There are diffuse degenerative changes of the visualized lumbar spine. RAD/Abdomen Single View IMPRESSION: Limited examination due to large amount of bowel overlying the right hemicolon. Possible 7 mm calculus in the midportion of the left ureter overlying the L3 transverse process. Electronically Signed: Rustam Smallwood, at 8:29 EDT , Service support ,
--- NOTE | 2020-04-21 07:16 | PN_ITS ---
Patient Problems: Active and Suspected Problems Left ureteral calculus (Acute) Subjective: blood surgar low today will hold DM meds, add D to IV - Physical Exam Vitals/I&O's: Vital Signs Temp Pulse Resp BP Pulse Ox 98.3 F 69 18 148/71 H 96 04/21/20 02:13 04/21/20 02:13 04/21/20 02:13 04/21/20 02:13 04/21/20 02:13 Oxygen Delivery Method Room Air Weight: 91.8 kg Body Mass Index (BMI) 32.6 Intake and Output for Last 24 Hours 04/19/20 04/20/20 04/21/20 23:59 23:59 23:59 Intake Total 1000 / 1000 2385.00 / 2385.00 Output Total 400 / 400 900 / 900 Balance 1000 / 1000 1985.00 / 1985.00 -900 / -900 General: Alert, Oriented x3, Cooperative HEENT: Atraumatic, PERRLA, EOMI, Normocephalic Neck: Supple, No JVD, Negative Carotid Bruits Lungs: Clear to auscultation, Normal air movement Cardiovascular: Regular rate, No murmurs Abdomen: Bowel Sounds Present, Soft, Non Tender Extremities: No edema, Capillary Refill Less than 3 Seconds Skin: No rashes, No breakdown Musculoskeletal: No Tenderness to Palpation of Joints or Extremities Neurological: Cranial nerves II-XII grossly intact Psych/Mental Status: Normal Affect, Appropriate Microbiology Past 72 Hours 04/20/20 01:35 Mucosa - Nasopharyngeal Coronavirus COVID-19 PCR - Final Laboratory Results 04/20/20 06:59: Hemoglobin A1c 5.9 H 04/21/20 05:55: POC Glucose 60 L 04/21/20 06:26: POC Glucose 107 Current Medications Hydrocodone Bitart/Acetaminophen ([place] 5mg-325mg) 1 tablet PO Q4H PRN PRN PRN Reason: Pain Score 1-10/10 Allopurinol (Zyloprim) 300 mg PO DAILY [facility] Last Admin: 04/20/20 09:17 Dose: 300 mg Documented by: Amlodipine Besylate (Norvasc) 5 mg PO DAILY [facility] Last Admin: 04/20/20 09:17 Dose: 5 mg Documented by: Dextrose (D50w Syringe) 0 gm IV X1 PRN; Protocol PRN Reason: Hypoglycemia Last Admin: 04/21/20 06:07 Dose: 12.5 gm Documented by: Ergocalciferol (Vitamin D) 50,000 unit PO Th@1000 [facility] Glucagon () 1 mg IM .X1 PRN PRN Reason: Hypoglycemia Potassium Chloride 10 meq/ (Dextrose/Sodium Chloride) 1,005 mls @ 75 mls/hr IV .[id number] [facility] Ketorolac Tromethamine (Toradol (Bkc)) 15 mg IV Q6H PRN PRN PRN Reason: Pain Score 1-10/10 Stop: 04/25/20 04:20 Last Admin: 04/21/20 05:53 Dose: 15 mg Documented by: Lisinopril (Zestril) 10 mg PO DAILY [facility] Last Admin: 04/20/20 09:17 Dose: 10 mg Documented by: Morphine Sulfate () 2 mg IV Q2H PRN PRN PRN Reason: Pain Score 6-10/10 Ondansetron HCl (Zofran) 4 mg IV Q6H PRN PRN PRN Reason: NAUSEA/VOMITING Sertraline HCl (Zoloft) 25 mg PO DAILY [facility] Last Admin: 04/20/20 09:16 Dose: 25 mg Documented by: Sodium Chloride () 10 - 40 ml IV UD PRN PRN Reason: SALINE FLUSH Last Admin: 04/20/20 13:45 Dose: 10 ml Documented by: Medical Necessity - Tobacco Use Smoking Status: Never smoker Tobacco Use: Non-smoker Assessment/Plan All Active Problems Left ureteral calculus (Acute) Sprain of ankle or foot, right (Acute) plan for stent today and the home afterwards
[2020-04-21] MEDS: Lisinopril 10 MG Tablet PO (08:26)
[2020-04-21] MEDS: amLODIPine 5 MG Tablet PO (08:26)
[2020-04-21] MEDS: Morphine 2 MG/ML Syringe IV (08:29)
[2020-04-21 08:56] LABS: Bedside Glucose 77 mg/dL (70-110)
[2020-04-21] MEDS: Lactated Ringers 1,000 ML 100 ML IV (11:20)
[2020-04-21 11:40] LABS: Bedside Glucose 73 mg/dL (70-110)
--- NOTE | 2020-04-21 12:45 | OP.PCM_ITS ---
Problem List (1) Left ureteral calculus Status: Acute Report of Operation Date of Procedure: 04/21/20 Pre-Operative Diagnosis: Obstructing left proximal ureteral calculus Post-Operative Diagnosis: Same Surgery/Procedure Performed:: Cystoscopy left stent placement Description of Surgical Findings:: 64-year-old female admitted for a large stone in the proximal left ureter today we will bring her down to place a stent and relieve the obstruction she is been having severe pain on the left side. Patient was taken back to the operating room at this of induction of MAC local she was placed in dorsolithotomy position, urethra vaginal area were prepped and draped in usual fashion 1 of the bladder with a 21 [place] rigid cystourethroscope, the entire bladder was normal no tumors or stones seen within the bladder. I then cannulated the left ureteral orifice advanced a wire I could feel the wire go past the stone up into the kidney and then over the wire I placed a stent push the stent up into the kidney and coiled in the kidney bladder good position no string was left on the stent so would not get removed since the stones not treated. And then I drained the bladder patient anesthetic was reversed and will plan to bring her back in about a week for ureteroscopy laser. Type of Anesthesia:: General Drains: stent left - Admit VTE Documentation VTE Present on Admission: No VTE Mechan Device Prophylaxis: SCD's
--- NOTE | 2020-04-21 12:49 | DCINST_ITS ---
Discharge Diet: No Restrictions, Light diet - advance as tolerated Discharge Activity: Return to Normal Activity, May Not Drive - for 2 days. Additional Activity Instructions:: f you have a catheter, remove on ___. If you have any problems after catheter is removed, call [phone] and ask for your doctor to be paged. Please be aware that pain medications may cause nausea. You should typically eat light foods as you take your pain medication. Pain medication may cause constipation, if this is a problem for you, please discuss with your doctor. Allergies/Adverse Reactions: Allergies acetaminophen [From Vicodin] Allergy (Verified 04/20/20 04:06) Chest tightness pt can take regular Tylenol but not Vicodin hydrocodone bitartrate [From Vicodin] Allergy (Verified 04/19/20 22:21) Chest tightness Medications to take at Discharge Ergocalciferol [Vitamin D] 50,000 unit PO TH 03/11/19 Glimepiride 4 mg PO DAILY 03/11/19 Lisinopril [Zestril] 10 mg PO DAILY 03/11/19 Metformin HCl 1,000 mg PO DAILY 03/11/19 Allopurinol [Zyloprim] 300 mg PO DAILY 02/05/20 Sertraline HCl [Zoloft] 25 mg PO DAILY 02/05/20 Amlodipine [Norvasc] 5 mg PO DAILY 04/19/20 Hydrocodone Bitart/Apap 5-325 [[place] 5MG-325MG] 1 tab PO Q4H PRN PRN 04/20/20 Cephalexin [Keflex] 500 mg PO Q8 #9 cap 04/21/20 Hydrocodone/Acetaminophen [[place] 5-325 Tablet] 1 each PO Q4H PRN PRN 5 Days #14 tablet 04/21/20 The following prescriptions were given: Cephalexin [Keflex] 500 mg PO Q8 #9 cap Transmission Status: Pending to [facility] Hydrocodone/Acetaminophen [[place] 5-325 Tablet] 1 each PO Q4H PRN PRN 5 Days #14 tablet PRN Reason: Pain Or Fever Transmission Status: Sent to [facility] Primary Care Physician: Tyree Goldman MD [Primary Care Provider] - Test Results: Test results from this visit will be discussed in further detail at your follow- up appointment, if applicable. Please Follow Up With: Evaristo Downing MD When: in 2 weeks, please call to make an appointment.
--- NOTE | 2020-04-21 12:50 | DS.PCM_ITS ---
Discharge Date and Diagnosis - Problem List Patient Problems: Active and Suspected Problems Left ureteral calculus (Acute) Date of Admission: 04/19/20 Date of Discharge: 04/21/20 - Primary Discharge Diagnosis Acute Problems: Active Problems Left ureteral calculus (Acute) - Secondary Discharge Diagnosis Chronic Problems: Chronic Problems Hypertension (Chronic) Hospital Course and Treatment Imaging Results: 04/21/20 07:00 KUB [Abdomen Single View] [RAD] Urgent 04/21/20 12:00 O.R. Fluoro for C-Arm [RAD] Urgent Operations: - - Cystoscopy left stent placement Summary of Care Provided: The patient is a 64 year old female who presented obstructing stone in the left kidney she underwent cystoscopy left stent placement to discharge home today Patient Problems: Active and Suspected Problems Left ureteral calculus (Acute) - Physical Exam Vitals/I&O's: Vital Signs Temp Pulse Resp BP Pulse Ox 97.9 F 68 16 166/72 H 97 04/21/20 08:15 04/21/20 08:15 04/21/20 08:15 04/21/20 08:15 04/21/20 08:15 Oxygen Delivery Method Room Air Weight: 91.8 kg Body Mass Index (BMI) 32.6 Intake and Output for Last 24 Hours 04/19/20 04/20/20 04/21/20 23:59 23:59 23:59 Intake Total 1000 / 1000 2385.00 / 2385.00 1236.25 / 1236.25 Output Total 400 / 400 900 / 900 Balance 1000 / 1000 1985.00 / 1985.00 336.25 / 336.25 General: Alert, Oriented x3, Cooperative HEENT: Atraumatic, PERRLA, EOMI, Normocephalic Neck: Supple, No JVD, Negative Carotid Bruits Lungs: Clear to auscultation, Normal air movement Cardiovascular: Regular rate, No murmurs Abdomen: Bowel Sounds Present, Soft, Non Tender Extremities: No edema, Capillary Refill Less than 3 Seconds Skin: No rashes, No breakdown Musculoskeletal: No Tenderness to Palpation of Joints or Extremities Neurological: Cranial nerves II-XII grossly intact Psych/Mental Status: Normal Affect, Appropriate Microbiology Past 72 Hours 04/20/20 01:35 Mucosa - Nasopharyngeal Coronavirus COVID-19 PCR - Final Laboratory Results 04/21/20 05:55: POC Glucose 60 L 04/21/20 06:26: POC Glucose 107 04/21/20 08:40: POC Glucose 77 04/21/20 11:38: POC Glucose 73 Current Medications Hydrocodone Bitart/Acetaminophen ([place] 5mg-325mg) 1 tablet PO Q4H PRN PRN PRN Reason: Pain Score 1-10/10 Allopurinol (Zyloprim) 300 mg PO DAILY [facility] Last Admin: 04/20/20 09:17 Dose: 300 mg Documented by: Amlodipine Besylate (Norvasc) 5 mg PO DAILY [facility] Last Admin: 04/21/20 08:26 Dose: 5 mg Documented by: Dextrose (D50w Syringe) 0 gm IV X1 PRN; Protocol PRN Reason: Hypoglycemia Last Admin: 04/21/20 06:07 Dose: 12.5 gm Documented by: Ergocalciferol (Vitamin D) 50,000 unit PO Th@1000 [facility] Glucagon () 1 mg IM .X1 PRN PRN Reason: Hypoglycemia Potassium Chloride 10 meq/ (Dextrose/Sodium Chloride) 1,005 mls @ 75 mls/hr IV .[id number] [facility] Last Infusion: 04/21/20 11:15 Dose: 0 mls/hr Documented by: Lactated Ringer's () 1,000 mls @ 100 mls/hr IV .Q10H [facility] Last Admin: 04/21/20 11:20 Dose: 100 mls/hr Documented by: Ketorolac Tromethamine (Toradol (Bkc)) 15 mg IV Q6H PRN PRN PRN Reason: Pain Score 1-10/10 Stop: 04/25/20 04:20 Last Admin: 04/21/20 05:53 Dose: 15 mg Documented by: Lisinopril (Zestril) 10 mg PO DAILY [facility] Last Admin: 04/21/20 08:26 Dose: 10 mg Documented by: Morphine Sulfate () 2 mg IV Q2H PRN PRN PRN Reason: Pain Score 6-10/10 Last Admin: 04/21/20 08:29 Dose: 2 mg Documented by: Ondansetron HCl (Zofran) 4 mg IV Q6H PRN PRN PRN Reason: NAUSEA/VOMITING Sertraline HCl (Zoloft) 25 mg PO DAILY [facility] Last Admin: 04/20/20 09:16 Dose: 25 mg Documented by: Sodium Chloride () 10 - 40 ml IV UD PRN PRN Reason: SALINE FLUSH Last Admin: 04/20/20 13:45 Dose: 10 ml Documented by: Discharge Diet: No Restrictions, Light diet - advance as tolerated Discharge Activity: Return to Normal Activity, May Not Drive - for 2 days. Additional Activity Instructions:: f you have a catheter, remove on ___. If you have any problems after catheter is removed, call [phone] and ask for your doctor to be paged. Please be aware that pain medications may cause nausea. You should typically eat light foods as you take your pain medication. Pain medication may cause constipation, if this is a problem for you, please discuss with your doctor. Home Medications: Medications to take at Discharge Ergocalciferol [Vitamin D] 50,000 unit PO TH 03/11/19 Glimepiride 4 mg PO DAILY 03/11/19 Lisinopril [Zestril] 10 mg PO DAILY 03/11/19 Metformin HCl 1,000 mg PO DAILY 03/11/19 Allopurinol [Zyloprim] 300 mg PO DAILY 02/05/20 Sertraline HCl [Zoloft] 25 mg PO DAILY 02/05/20 Amlodipine [Norvasc] 5 mg PO DAILY 04/19/20 Hydrocodone Bitart/Apap 5-325 [[place] 5MG-325MG] 1 tab PO Q4H PRN PRN 04/20/20 Cephalexin [Keflex] 500 mg PO Q8 #9 cap 04/21/20 Hydrocodone/Acetaminophen [[place] 5-325 Tablet] 1 each PO Q4H PRN PRN 5 Days #14 tablet 04/21/20 Following Prescrptions Were Given to Patient: Cephalexin [Keflex] 500 mg PO Q8 #9 cap Transmission Status: Pending to [facility] Hydrocodone/Acetaminophen [[place] 5-325 Tablet] 1 each PO Q4H PRN PRN 5 Days #14 tablet PRN Reason: Pain Or Fever Transmission Status: Sent to [facility] Primary Care Physician: Tyree Goldman MD [Primary Care Provider] - Please Follow Up With: Evaristo Downing MD When: in 2 weeks, please call to make an appointment. Medical Necessity - Tobacco Use Smoking Status: Never smoker Tobacco Use: Non-smoker Meaningful Use Info Meaningful Use Diagnoses (Choose all that apply): None applicable
[2020-04-21] MEDS: Sertraline 50 MG Tablet 25 MG PO (14:35)
[2020-04-21] MEDS: Allopurinol 300 MG Tablet PO (14:36)
--- NOTE | 2020-04-22 14:50 | CASEMGMT ---
MARCELA ROSS Discharge Follow-Up Phone Call. Augustina: Ita Strata: 3 Discharge Date: 04/21/20 Adm Dx: Cystoscopy and Lt stent placement Call to pt to inquire about how she has been doing since being discharged from the hospital. She states not too bad. She states she is having a little bit of pain but states the [facility] is helping. States she was also able to get the Keflex, is taking it as prescribed, and is having no problems. Denies having any questions/concerns re: discharge instructions or medications. States has not been able to make an appt with Dr Downing yet d/t his office is not open on Saturday, but she plans on calling then to scheduled an appt. She denies other needs/concerns. MARCELA ROSS thanked pt for choosing [facility]. Salome MORALEZ RN, CM
== END 2020-04-21 14:58 | disposition home or self-care (01) | DRG 661 ==
LOC: ED 04-20 01:24 → MS3 04-20 07:21
PROVIDERS: Anesthesiology; Admitting Provider Urology; Emergency Provider Emergency Medicine; PCP Family Medicine; Referring Provider Urology; Visit Provider Urology
PROC: 0T778DZ Dilation of Left Ureter with Intraluminal Device, Via Natural or Artificial Opening Endoscopic (ICD-10-PCS; CPT 52332; principal; 2020-04-21 11:50)
DX: N13.2 Hydronephrosis with renal and ureteral calculous obstruction (principal); I10 Essential (primary) hypertension; E11.9 Type 2 diabetes mellitus without complications; Z87.442 Personal history of urinary calculi; Z79.84 Long term (current) use of oral hypoglycemic drugs; Z79.899 Other long term (current) drug therapy
CPT/HCPCS: 74018; 74177; 76000; 80053; 81001; 82962; 83036; 83690; 85025; 87635; 90471; 93005; 96361; 96365; 96375; 99285; G2023; J7030; J7120; Q9967; A4216; C1769; C2617; J2405; U0004

== ENCOUNTER 2020-04-27 11:48 | Day surgery (SDC) | payer MEDICARE, SELFPAY ==
[2020-04-21 08:15] VITALS: BMI 32.6
[2020-04-27] VITALS (9 sets, daily range): BP systolic 133–174; BP diastolic 76–93; PULSE 74–84; RESP 16–18; TEMP 36.1–37.1; O2SAT 94–98; BMI 32.3
--- NOTE | 2020-04-27 12:15 | RAD_ITS ---
STUDY: X-RAY - ABDOMEN/PELVIS REASON FOR EXAM: Female, 64 years old. PRE OP SURGERY FOR KIDNEY STONES TECHNIQUE: 2 views of the abdomen COMPARISON: 04/21/2020. FINDINGS: Non-visualized lung bases. There is an unremarkable bowel gas pattern. There is no demonstrated free abdominal air. Punctate high density material is seen throughout the colon. A left ureteral stent is in place. Normal soft tissue structures. Normal visualized osseous structures. RAD/Abdomen Single View IMPRESSION: Left ureteral stent in place. High density material visualized within the colon is nonspecific. Correlate with ingestion history. Electronically Signed: Saim Duncan, at 17:28 EDT Tel , Service support ,
[2020-04-27] MEDS: Lactated Ringers 1,000 ML 100 ML IV ×2 (13:15→15:42)
[2020-04-27 13:21] LABS: Bedside Glucose 88 mg/dL (70-110)
--- NOTE | 2020-04-27 13:49 | HP.PCM_ITS ---
Problem List (1) Left ureteral calculus Status: Acute History of Present Illness Date of Admission: 04/27/20 Chief Complaint: Left kidney stone The patient is a 64 year old female presents for treatment of left kidney stone status post stent Past Medical History Past Medical History (Chronic Problems): Chronic Problems Hypertension (Chronic) Allergies acetaminophen [From Vicodin] Allergy (Verified 04/27/20 13:08) Chest tightness pt can take regular Tylenol but not Vicodin hydrocodone bitartrate [From Vicodin] Allergy (Verified 04/27/20 13:08) Chest tightness Home Medications: Ambulatory Orders Medication Instructions Recorded Ergocalciferol [Vitamin D] 50,000 unit PO TH 03/11/19 Glimepiride 4 mg PO DAILY 03/11/19 Lisinopril [Zestril] 10 mg PO DAILY 03/11/19 Metformin HCl 1,000 mg PO DAILY 03/11/19 Allopurinol [Zyloprim] 300 mg PO DAILY 02/05/20 Sertraline HCl [Zoloft] 25 mg PO DAILY 02/05/20 Amlodipine [Norvasc] 5 mg PO DAILY 04/19/20 Hydrocodone Bitart/Apap 5-325 1 tab PO Q4H PRN PRN 04/20/20 [[place] 5MG-325MG] Cephalexin [Keflex] 500 mg PO Q8 #9 cap 04/21/20 Surgical History: noncontributory Psychiatric History: No pertinent psych hx 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 pertinent INSTALLATION & MAINTENANCE EXECUTIVE history Smoking Status: Never smoker - *Family History Maternal History Items: No pertinent history Review of Systems Constitutional: Denies: Chills, Fever, Weight Change HEENT: Denies: Head Aches, Sinus Congestion, Sinus Drainage Cardiovascular: Denies: Chest Pain, Palpitations Respiratory: Denies: Cough, Shortness of breath at rest, Sputum production Gastrointestinal: Denies: Abdominal Pain, Nausea, Vomiting Genitourinary: Denies: Dysuria Musculoskeletal: Denies: Joint Pain, Joint Tenderness Skin: Denies: Rash, Wounds Neurological: Denies: Numbness, Tingling, Focal weakness Psychiatric: Denies: Anxiety, Depression, Homicidal Ideations, Suicidal Ideations Hematologic/ Lymphatic: Denies: Easy Bruising, Easy Bleeding VTE Information - Inpt Only VTE Present on Admission: No VTE Mechan Device Prophylaxis: SCD's - Physical Exam Vitals/I&O's: Vital Signs Temp Pulse Resp BP Pulse Ox 97.1 F L 75 16 174/90 H 98 04/27/20 13:08 04/27/20 13:08 04/27/20 13:08 04/27/20 13:08 04/27/20 13:08 Oxygen Delivery Method Room Air Weight: 90.7 kg Body Mass Index (BMI) 32.3 General: Alert, Oriented x3, Cooperative HEENT: Atraumatic, PERRLA, EOMI, Normocephalic Neck: Supple, No JVD, Negative Carotid Bruits Lungs: Clear to auscultation, Normal air movement Cardiovascular: Regular rate, No murmurs Abdomen: Bowel Sounds Present, Soft, Non Tender Extremities: No edema, Capillary Refill Less than 3 Seconds Skin: No rashes, No breakdown Musculoskeletal: No Tenderness to Palpation of Joints or Extremities Neurological: Cranial nerves II-XII grossly intact Psych/Mental Status: Normal Affect, Appropriate Laboratory Results 04/27/20 11:18: COVID-19 (LUIS) Not Detected 04/27/20 13:05: POC Glucose 88 Current Medications Lactated Ringer's () 1,000 mls @ 100 mls/hr IV .Q10H DEVIKA Last Admin: 04/27/20 13:15 Dose: 100 mls/hr Documented by: Assessment/Plan All Active Problems Left ureteral calculus (Acute) Sprain of ankle or foot, right (Acute) Plan for left ESWL
--- NOTE | 2020-04-27 13:51 | DCINST_ITS ---
Discharge Diet: Light diet - advance as tolerated Discharge Activity: Return to Normal Activity Call your doctor if you observe: Fever of 101 or Higher Instructions: Shock Wave Lithotripsy Allergies/Adverse Reactions: Allergies acetaminophen [From Vicodin] Allergy (Verified 04/27/20 13:08) Chest tightness pt can take regular Tylenol but not Vicodin hydrocodone bitartrate [From Vicodin] Allergy (Verified 04/27/20 13:08) Chest tightness Medications to take at Discharge Ergocalciferol [Vitamin D] 50,000 unit PO TH 03/11/19 Glimepiride 4 mg PO DAILY 03/11/19 Lisinopril [Zestril] 10 mg PO DAILY 03/11/19 Metformin HCl 1,000 mg PO DAILY 03/11/19 Allopurinol [Zyloprim] 300 mg PO DAILY 02/05/20 Sertraline HCl [Zoloft] 25 mg PO DAILY 02/05/20 Amlodipine [Norvasc] 5 mg PO DAILY 04/19/20 Hydrocodone Bitart/Apap 5-325 [[place] 5MG-325MG] 1 tab PO Q4H PRN PRN 04/20/20 Cephalexin [Keflex] 500 mg PO Q8 #9 cap 04/21/20 Primary Care Physician: Tyree Goldman MD [Primary Care Provider] - Test Results: Test results from this visit will be discussed in further detail at your follow- up appointment, if applicable. Please Follow Up With: Evaristo Downing MD When: please call to make an appointment.
[2020-04-27] MEDS: Cefazolin 2 GM in 0.9% Normal Saline 100 ML IV (14:00)
--- NOTE | 2020-04-27 14:40 | PCM.OPRPT ---
Problem List (1) Left ureteral calculus Status: Acute Report of Operation Date of Procedure: 04/27/20 Pre-Operative Diagnosis: Left renal calculi Post-Operative Diagnosis: Same Surgery/Procedure Performed:: Left extracorporeal shockwave lithotripsy Description of Surgical Findings:: 64-year-old female presents to the hospital today for treatment of a stone in the left kidney she has had a stent placed KUB today per confirms a stone in the kidney itself. We discussed how the procedure is done with expect afterwards. Patient was taken back to the operating room after smooth induction of general anesthesia she was placed prone on the table the stone in the lower pole the left kidney was then triangulated using fluoroscopy and then the lithotripter machine was brought in underneath the patient we then put the stone in the F2 focal point of the machine we proceeded with shockwave treatment, a total of 3000 shocks were delivered to the stone at a rate of 90/min power ranging from the 7 the 5 kV. During the stone treatment we monitored the stone under fluoroscopy at the end of the treatment the stone it broken up to the level tiny pieces appear to be a complete fragmentation. The patient did really well he is being reversed from anesthesia stone broke up really well will leave the stent in place plan to see her back next week for cystoscopy stent removal. Type of Anesthesia:: General Drains: stent - Admit VTE Documentation VTE Present on Admission: No VTE Mechan Device Prophylaxis: SCD's
[2020-04-27] MEDS: oxyCODONE 5 MG Tablet PO (16:20)
== END 2020-04-27 17:30 | disposition home or self-care (01) ==
LOC: SDC 11:49 → AC 11:50
PROVIDERS: Anesthesiology; PCP Family Medicine; Referring Provider Urology; Visit Provider Urology
PROC: (CPT 50590; principal; 2020-04-27 13:40)
DX: N20.1 Calculus of ureter (principal); Z11.59 Encounter for screening for other viral diseases; I10 Essential (primary) hypertension; E11.9 Type 2 diabetes mellitus without complications; F32.9 Major depressive disorder, single episode, unspecified; Z78.0 Asymptomatic menopausal state; Z87.442 Personal history of urinary calculi; Z79.84 Long term (current) use of oral hypoglycemic drugs; Z79.899 Other long term (current) drug therapy
CPT/HCPCS: 00873; 50590; 74018; 82962; 87635; C9803; G2023; J7120; J2405; U0003

== ENCOUNTER → 2020-05-03 07:58 | Outpatient (CLI) | payer MEDICARE, SELFPAY ==
[2020-04-27 13:08] VITALS: BMI 32.3
--- NOTE | 2020-05-03 08:13 | RAD_ITS ---
STUDY: X-RAY - ABDOMEN/PELVIS REASON FOR EXAM: Female, 64 years old. Follow up to kidney stent placed last week. TECHNIQUE: Single AP view of the abdomen / pelvis. COMPARISON: Comparison is made with prior study dated April 27, 2020. FINDINGS: Normal visualized lung bases. There is an unremarkable bowel gas pattern. A left-sided double-J stent catheter is once again seen with the proximal tip in the upper pole calyx of the left kidney and the distal tip in the left side of the bladder. Stable faint calcification seen in the lower pole calyx of the left kidney. Stable tiny calculi in the right kidney as well. Normal soft tissue structures. Normal visualized osseous structures. RAD/Abdomen Single View IMPRESSION: Stable examination. Electronically Signed: Rustam Smallwood, at 13:44 EDT , Service support ,
== END ==
LOC: RAD 08:02
PROVIDERS: PCP Family Medicine; Referring Provider Urology; Visit Provider Urology
DX: N20.1 Calculus of ureter (principal)
CPT/HCPCS: 74018

== ENCOUNTER → 2020-11-07 08:10 | Outpatient (CLI) | payer MEDICARE, SELFPAY ==
[2020-04-27 13:08] VITALS: BMI 32.3
[2020-11-07 09:17] LABS: Absolute Lymphocyte Count 1.43 X10^3/uL (0.83-4.51); Absolute Neutrophil Count 4.3 X10^3/uL (2.0-7.7); Basophil# 0.05 X10^3/uL; Basophil% 0.8 % (0-1); Eosinophil# 0.28 X10^3/uL; Eosinophils% 4.3 % (0-5); Hematocrit 36.1 % (37-47); Lymphocyte # 1.43 X10^3/ul (4.0); Lymphocyte % 21.8 % (19-41); Mean Corp Hgb Conc 33.2 g/dL (32-36); Mean Corpuscular Hgb 30.8 pg (27.0-32.0); Mean Corpuscular Volume 92.6 fL (81-99); Mean Platelet Vol. 10.2 fl (6.2-12.0); Monocyte# 0.52 X10^3/uL; Monocyte% 7.9 % (0-10); NRBC Flagged by Analyzer 0 % (0-5); Neutrophil # 4.27 X10^3/uL (2.7-7.7); Neutrophil % 64.9 % (47-70); Platelet Count 256 K/mm3 (150-450); RBC Distribution Width CV 12.6 % (11.6-14.6); RBC Distribution Width SD 42.5 fl (35.1-43.9); White Blood Count 6.6 K/mm3 (4.4-11.0)
[2020-11-07 09:20] LABS: Color, Urine Yellow (Yellow); Glucose, Dipstick Normal (Normal); Ketone-Dipstick Negative (Negative); Leukocyte Esterase-Dipstick 25 /ul (Negative); Nitrite-Dipstick Negative (Negative); Occult Blood-Urine Negative /ul (Negative); Protein-Dipstick 15 mg/dl (Negative); Specific Gravity, Urine 1.015 (1.002-1.030); Urine Bilirubin Dipstick Negative (Negative); Urine Clarity Sl. Cloudy (Clear); Urine Urobilinogen Normal (Normal)
[2020-11-07 09:33] LABS: Hemoglobin A1c 7.4 % (3.8-5.6)
[2020-11-07 10:04] LABS: ALB/GLOB Ratio 0.9 RATIO (0.9-2.4); AST(SGOT) 13 U/L (15-37); Alanine Aminotransfer ALT/SGPT 19 U/L (13-56); Albumin, Serum 3.5 g/dL (3.2-5.0); Alkaline Phosphatase 98 U/L (45-117); Anion Gap 4 (5-15); BUN 27 mg/dL (7-18); BUN/Creat Ratio 18.2 RATIO (10-20); Calcium,Total 9.2 mg/dL (8.5-10.1); Chloride 107 mmol/L (98-107); Cholesterol 251 mg/dL (200); Creatinine, Serum 1.48 mg/dL (0.55-1.02); EST Glomerular Filtration Rate 38 mL/min (>60); Est Glom Filt Rate - Afr Amer 45 mL/min (>60); Globulin 3.7 g/dL (2.2-4.2); Glucose 107 mg/dL (74-106); High Density Lipoprotein 39 mg/dL; Potassium 4.5 mmol/L (3.5-5.1); Protein, Total 7.2 g/dL (6.4-8.2); Sodium Level 139 mmol/L (136-145); Triglycerides 330 mg/dL; Very Low Density Lipoprotein 66 mg/dL (5-40)
== END ==
PROVIDERS: PCP Family Medicine; Referring Provider Family Medicine; Visit Provider Family Medicine
DX: Z00.00 Encounter for general adult medical examination without abnormal findings (principal); E78.5 Hyperlipidemia, unspecified; E55.9 Vitamin D deficiency, unspecified; I10 Essential (primary) hypertension; E11.9 Type 2 diabetes mellitus without complications
CPT/HCPCS: 36415; 80053; 80061; 81002; 83036; 85025

== ENCOUNTER → 2020-11-10 10:33 | Outpatient (CLI) | payer MEDICARE, SELFPAY ==
[2020-04-27 13:08] VITALS: BMI 32.3
--- NOTE | 2020-11-10 10:35 | BI_ITS ---
MAMMOGRAPHY - BILATERAL SCREENING REASON FOR EXAM: Female, 65 years old. Routine annual screening examination. PERTINENT HISTORY: Grandmother with breast cancer. TECHNIQUE: Digital bilateral breast bianca (3D mammographic acquisition) in the CC and MLO projections. 2-D mediolateral oblique (MLO) and craniocaudad (CC) views of both breasts were obtained. CAD: Full Field Digital Mammography with Computer Added Detection was performed. COMPARISON: Comparison is made with prior study dated 12/27/2017. FINDINGS: Breast Composition: There are scattered areas of fibroglandular density. There are no dominant masses or suspicious calcifications. Stable benign appearing left axillary lymph node. No other significant abnormalities are identified. There has been no significant change since the prior study. BI/SCREEN MAMM (CAD) W/BIANCA BILAT IMPRESSION: Stable bilateral screening mammogram. Yearly follow-up mammogram recommended. (A) ASSESSMENT CATEGORY: BIRADS Category 2: Benign. A letter regarding these results will be sent to the patient by the facility within 30 days. Approximately 10% of breast cancers are not detected by mammography. A normal mammogram should not delay biopsy of a clinically suspicious abnormality. [id number] Electronically Signed: Rustam Smallwood, at 11:21 EST , Service support ,
== END ==
PROVIDERS: PCP Family Medicine; Referring Provider Family Medicine; Visit Provider Family Medicine
DX: Z12.31 Encounter for screening mammogram for malignant neoplasm of breast (principal)
CPT/HCPCS: 77063; 77067

== ENCOUNTER 2021-01-06 11:25 | Emergency (ER) | payer MEDICARE, SELFPAY ==
[2020-04-27 13:08] VITALS: BMI 32.3
[2021-01-06 11:26] VITALS: BP 165/83; PULSE 71; RESP 18; TEMP 36.2; O2SAT 100; BMI 29.5
--- NOTE | 2021-01-06 11:40 | RAD_ITS ---
STUDY: X-RAY - RIGHT HAND REASON FOR EXAM: Female, 65 years old. PAIN S/P FALL TECHNIQUE: 4 view(s) of the hand. COMPARISON: None. FINDINGS: Acute comminuted fracture at the right fifth proximal phalanx base. No acute dislocation. No acute bone destruction. Osteopenia. Multiregional mild/moderate joint space narrowing at the first carpometacarpal joint, first interphalangeal joint, proximal interphalangeal joints and distal interphalangeal joints. Soft tissue swelling at the fifth digit. RAD/Hand Min 3 Views IMPRESSION: Acute comminuted right fifth proximal phalanx base fracture Degenerative changes, as above Fifth digit soft tissue swelling Electronically Signed: David Retana DO at 12:00 EST Tel , Service support ,
--- NOTE | 2021-01-06 11:52 | CT_ITS ---
STUDY: CT BRAIN WITHOUT CONTRAST REASON FOR EXAM: Female, 65 years old. FALL, HEAD INJURY ON RIGHT RADIATION DOSAGE (If Supplied By Facility): CTDIvol = ( 44.99 ) mGy, DLP = ( 796.11 ) mGycm TECHNIQUE: Transaxial CT imaging of the brain was performed without administration of intravenous contrast material. Individualized dose optimization techniques were used for this CT. COMPARISON: Comparison is made with prior study of 02/05/2017. FINDINGS: Small scalp hematoma overlying the right frontal parietal bone. Normal calvarium. Normal size ventricles and extra-axial spaces for the patient''s age. Normal white matter tracts of the cerebral hemispheres. Normal basal ganglia and thalami. Normal brainstem. Normal cerebellum. There is no intracranial hemorrhage. There are no findings of an acute ischemic infarction. Normal visualized paranasal sinuses. CT/Brain/Head without Contrast IMPRESSION: Normal unenhanced CT scan of the brain. Small scalp hematoma overlying the right frontoparietal bone. Electronically Signed: Rustam Smallwood MD at 12:35 EST , Service support ,
--- NOTE | 2021-01-06 13:30 | ED.DCSUM_ITS ---
History of Present Illness Chief Complaint: Fall Narrative: Patient presenting for evaluation secondary to an upper extremity injury and head injury. Patient reports that she suffered a mechanical fall today. She tripped and fell injuring her small digit on her right hand as well as striking her head on the ground. No loss consciousness. Patient denies that she is on any sort of anticoagulants. No visual changes numbness weakness nausea vomiting or confusion. Pain in the hand is moderate to severe worse with palpation and movement. No numbness associated with it. Patient has a hematoma on the forehead which is mildly painful. No history of easy bleeding or bruising. Review of systems otherwise negative. Past Medical History - Allergies and Home Meds Allergies/Adverse Reactions: Allergies acetaminophen [From Vicodin] Allergy (Verified 01/06/21 11:26) Chest tightness pt can take regular Tylenol but not Vicodin hydrocodone bitartrate [From Vicodin] Allergy (Verified 01/06/21 11:26) Chest tightness Primary Care Physician: Tyree Goldman MD [Primary Care Provider] - Prior records reviewed: Yes Past Medical History: - - Hypertension, diabetes Surgical History: noncontributory Lives: With Family Smoking Status: Never smoker Alcohol: None Drugs: None - Family History Maternal Family History: Reports: No pertinent history Review of Systems All systems negative except as indicated General: Denies: Chills, Fever, Sweats Eyes: Denies: Visual changes - bilaterally, Diplopia ENT: Denies: Rhinorrhea, Sore throat Cardiovascular: Denies: Chest pain, Palpitations Respiratory: Denies: Dyspnea, Cough, Dyspnea on exertion Gastrointestinal: Denies: Abdominal pain, Nausea, Vomiting, Diarrhea, Melena, Hematochezia Genitourinary: Denies: Dysuria, Hematuria, Frequency Musculoskeletal: Reports: Extremity Pain Skin: Denies: Rash, Wounds Neurological: Reports: Headache Physical Exam Vital Signs/Narrative: Vital Signs Temp Pulse Resp BP Pulse Ox 01/06/21 11:26 97.1 F L 71 18 165/83 H 100 Inital Vital Signs reviewed: Yes Right Finger: - - Exam of the right hand shows ecchymosis and swelling of the small digit with some limitation of range of motion secondary to pain. Normal capillary refill. No other traumatic injuries of the hand are noted General: Well nourished, Well developed Head: Normocephalic, - - Right frontal hematoma without evidence of depressed call fracture Eyes: Perrl, EOMI ENT: No Trauma, Moist Mucous Membranes Neck: Nontender, Full ROM Cardiovascular: Regular rate, Regular rhythm, No murmurs Respiratory: No distress, CTA bilaterally, Chest nontender Abdomen: Soft, Nontender, Nondistended, Normal bowel sounds Back: Nontender Skin: Normal color, No rash Neurological: Alert, Oriented x3, Cranial nerves II-XII grossly intact, Normal Strength, Normal Sensation Psychological: Normal affect Diagnostic/Tx/Re-eval Clinical Impression(s) from Imaging Studies Hand X-Ray 01/06/21 11:40 IMPRESSION: Acute comminuted right fifth proximal phalanx base fracture Degenerative changes, as above Fifth digit soft tissue swelling Electronically Signed: David Retana DO at 12:00 EST Tel , Service support , Brain CT 01/06/21 11:52 IMPRESSION: Normal unenhanced CT scan of the brain. Small scalp hematoma overlying the right frontoparietal bone. Electronically Signed: Rustam Smallwood MD at 12:35 EST , Service support , - Medical Decision Making Patient presented secondary to head injury and a hand injury. 3 view of the hands demonstrates evidence of a proximal phalanx fracture of the small digit of the right hand. I reviewed this as well as radiology. Patient was placed in a ulnar gutter splint as noted in the procedure note. CT imaging the brain was found to be negative. Patient will be discharged with outpatient follow-up with orthopedics. Procedures Procedure(s): Ulnar gutter splint was fabricated by the ED physician at the bedside. Hand was wrapped with a stockinette and cotton padding. 4 inch Ortho- Glass was then placed and was secured in place with a Alcides wrap. Patient had good capillary refill and good toleration of the procedure. ED Disposition - Plan for ED Patient: Disposition: Home or Assisted Living Diagnosis: Proximal phalanx fracture of finger, Forehead contusion Instructions: ED Fracture, Finger, Closed Referrals: Birgit Calvo DO [STAFF PHYSICIAN] - 3-5 Days
[2021-01-06 13:48] VITALS: RESP 18
== END 2021-01-06 13:49 | disposition home or self-care (01) ==
PROVIDERS: Emergency Provider Emergency Medicine; PCP Family Medicine
DX: S62.616A Displaced fracture of proximal phalanx of right little finger, initial encounter for closed fracture (principal); S00.83XA Contusion of other part of head, initial encounter; W01.0XXA Fall on same level from slipping, tripping and stumbling without subsequent striking against object, initial encounter; Y93.9 Activity, unspecified; Y92.9 Unspecified place or not applicable; I10 Essential (primary) hypertension; E11.9 Type 2 diabetes mellitus without complications; Z79.84 Long term (current) use of oral hypoglycemic drugs; Z79.899 Other long term (current) drug therapy
CPT/HCPCS: 29125; 29130; 70450; 73130; 99283

== ENCOUNTER 2021-01-18 18:18 | Observation (INO) | payer MEDICARE, SELFPAY ==
[2021-01-18] VITALS (21 sets, daily range): BP systolic 146–194; BP diastolic 60–99; PULSE 66–82; RESP 16–20; TEMP 35.9–36.6; O2SAT 88–100; BMI 34.9
--- NOTE | 2021-01-18 09:08 | HP_ITS ---
I have re-examined the patient. There are no clinical changes since date of exam. Intake Intake Visit Reasons: Right hand Chief Complaint: Left flank pain Allergies acetaminophen [From Vicodin] Allergy (Verified 01/06/21 11:26) Chest tightness hydrocodone bitartrate [From Vicodin] Allergy (Verified 01/06/21 11:26) Chest tightness PFS Social History (Updated 01/13/21 @ 09:53 by LACHELLE Jesus) Smoking Status: Never smoker HPI Right hand: Surgical H&P: Yes Details: Parts of this documentation were recorded by a scribe, this documentation accurately reflects the service provided and the decisions made by me, LACHELLE Carmona 01/12/21 [id number]. ADILSON STANFORD is a 65 year old F NEW patient here today for right hand injury. DOI: 01/06/2021. Patient was carrying two 5 gallon buckets of cattle feed and she tripped and hit her hand somehow. She had some swelling and bruising along with pain. She denies any numbness or tingling. She did go to the ER and has taken some medication she had for kidney stones which has helped the pain. Ortho Exam Right Wrist/Hand Skin/Wound: Yes Swelling, Yes Ecchymosis, Yes nail intact, Yes capillary refill normal Right Wrist: Yes TTP Fracture site (Left fifth metacarpal) WRIST: Patient has evident ecchymosis and generalized swelling of the right fourth and fifth fingers as well as into the dorsal hand. She does have good sensation throughout the fingers. She does have intact capillary refill. She does have intact motor function of the fourth and fifth digits. There is reproducible tenderness over the fracture site. Left Wrist/Hand Skin/Wound: Yes Swelling, Yes Ecchymosis Assessment & Plan Problems 1. Closed displaced fracture of base of fifth metacarpal bone of right hand, initial encounter S62.316A Plan Patient presents the office today for follow-up of right fifth metacarpal fracture sustained while she was carrying 5 gallon buckets to the barn. Radiographs were reviewed with patient and her in office today showing a comminuted slightly displaced fracture of the proximal fifth metacarpal. 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 At this time we discussed treatment options with patient which include possible closed reduction and cast immobilization versus open reduction internal fixation. Patient states that she really wants to be able to use this as soon as possible and is not keen on having a cast. Therefore at this time she would like to proceed with surgical intervention of right fifth metacarpal fracture. Risks and benefits of the procedure were discussed with patient including but not limited to infections, blood loss, blood clot, neurovascular injuries, failure of procedure, loss of limb/loss of life from anesthesia, as well as risks of COVID-19 for hospital procedure. Patient has no other questions or concerns at this time. Consent was signed in office today. Patient be notified by our office to set up the day of surgery. She will then be notified by the hospital for preanesthesia/surgery testing. She can notify our office in the meantime with any questions or concerns. I did adjust her ulnar gutter splint which was causing her some discomfort. This note was generated with [employer] dictation software. It may contain incorrect words, spelling, and punctuation that were not noted in checking the note before signing. Coding Level of Care Code Off vis,new,level 3 Diagnoses Closed displaced fracture of base of fifth metacarpal bone of right hand, initial encounter S62.316A ??Encounter type: initial encounter ??Fracture type: closed ??Metacarpal location: base ??Fracture alignment: displaced
[2021-01-18] MEDS: Lactated Ringers 1,000 ML 100 ML IV ×2 (10:18→11:00)
[2021-01-18] MEDS: Cefazolin 2 GM in 0.9% Normal Saline 100 ML IV (11:23)
--- NOTE | 2021-01-18 11:26 | DCINST_ITS ---
Discharge Diet: No Restrictions - leave dressing on until seen in postop clinic in 10-14 days for suture removal, keep dressing clean, dry, intact; change dressing if gets wet/dirty, call with concerns Discharge Activity: May Not Drive May shower in (days): 1 Ice area for (Minutes): 20 - Every hour while awake. Weight Bearing Status: Weight bearing as tolerated Keep extremity elevated above heart level: Operative Extremity Call your doctor if your incision/area has: Continuous Slow Oozing, Sudden Increased Bleeding, Increased Pain/ Swelling, Increased Redness, Foul Smelling Discharge Call your doctor if you observe: Fever of 101 or Higher, Coldness, Increased Pain, Numbness or Tingling, Change in Color, Calf discomfort Allergies/Adverse Reactions: Allergies acetaminophen [From Vicodin] Allergy (Verified 01/18/21 10:07) Chest tightness pt can take regular Tylenol but not Vicodin hydrocodone bitartrate [From Vicodin] Allergy (Verified 01/18/21 10:07) Chest tightness Medications to take at Discharge Ergocalciferol [Vitamin D] 50,000 unit PO TH 03/11/19 Glimepiride 4 mg PO DAILY 03/11/19 Lisinopril [Zestril] 10 mg PO DAILY 03/11/19 Metformin HCl 1,000 mg PO DAILY 03/11/19 Allopurinol [Zyloprim] 300 mg PO DAILY 02/05/20 Sertraline HCl [Zoloft] 25 mg PO DAILY 02/05/20 Amlodipine [Norvasc] 5 mg PO DAILY 04/19/20 Hydrocodone Bitart/Apap 5-325 [[place] 5MG-325MG] 1 tab PO Q4H PRN PRN 04/20/20 Oxycodone HCl/Acetaminophen [Percocet 5/325] 1 - 2 tablet PO Q6H PRN PRN 5 Days #28 tablet 01/18/21 The following prescriptions were given: Oxycodone HCl/Acetaminophen [Percocet 5/325] 1 - 2 tablet PO Q6H PRN PRN 5 Days #28 tablet PRN Reason: Pain Transmission Status: Sent to [facility] Primary Care Physician: Tyree Goldman MD [Primary Care Provider] - Test Results: Test results from this visit will be discussed in further detail at your follow- up appointment, if applicable. Please Follow Up With: Birgit Calvo, - [phone]
--- NOTE | 2021-01-18 11:26 | PCM.OPRPT ---
Report of Operation Date of Procedure: 01/18/21 Anesthesiologist: Marquise Wade Estimated Blood Loss (mL): min Fluids Replaced: 1000ml lr Description of Procedure: Preop note Patient is 65-year-old female who sustained an injury to her right fifth proximal phalanx when she fell while doing chores. Immediate pain and deformity x-rays in the emergency room show impacted proximal phalanx fracture. Risk benefits and patient was then seen in our office. Discussed options for treatment. Patient elected proceed with ORIF of her right fifth proximal phalanx. Risk benefits and alternatives were discussed with patient. Risk include but not limited to blood loss, blood clot, infection, neurovascular G, failure procedure, loss of life and loss of limb. Patient is aware would like proceed with ORIF of her right fifth proximal phalanx given the knowledge that there could be extensive need for revision stiffness and neurologic neurovascular injury. Covid we discussed the current risk associated COVID-19. While it is understood that there is a community spread of COVID 19 the risk of frances COVID-19 while at [facility] is very low, however, the risk cannot be completely mitigated because of the community spread of the disease. We discussed in detail the risk of exposure to and or potential harm posed by the COVID-19 virus with having a surgery/procedure at this time versus the risk of delaying the surgery/procedure. Is not possible to know either the risk of delaying the surgery procedure or chance of getting an infection with perfect accuracy, but a joint decision was made to proceed at this time with a schedule surgery/procedure as indicated on the consent form. Patient was notified that we will need to comply with any screening or testing [facility] wishes to perform or that surgery may be delayed for any positive results. Operative note Patient seen and examined preoperative area. Right retail reset merchandiser was marked. Patient brought to the operating room and placed supine on the operating table. Signed, anesthesia, antibiotics were administered. The right arm was prepped and draped in usual sterile technique with a tourniquet around her upper arm. All bony promises well-padded SCDs placed on her bilateral lower extremity. We marked out our incision for our extensile approach to the proximal phalanx at the MCP joint. Right arm was then elevate exsanguinated tourniquet was raised her pressure of 250 torr 2. Timeout was performed. We then marked our incision again was radially around the MCP joint extending about a centimeter distal and proximal. We used a 15 blade to cut through the skin dissected down to the level of the extensor tendons we split the extensor tendons in between the EDM and the EDC these were retracted and we were able to dissect down to the capsule MCP joint capsule was then incised midline. We then able to visualize the fracture. The fracture was comminuted in multiple pieces the articular surface was completely incongruent and. We then irrigated the incision with copious muscle sterile saline we did do a little bit of periosteal elevation and soft tissue debridement to better visualize the fractures configuration. We are able to put the pieces and parts back together for semicongruent articular surface as best as possible due to the nature of the impaction and driving of the shaft into the articular surface. The pieces were too small to fixate with the plates we did take we were able to fix AP split inserted the sagittal split with an ADP 2.0 millimeter screw measured it was a 12 mm screw. We then also maintain reduction by using a 2.2 started 2-0 Vicryl circumferentially around the fracture and there is also enabled us to further allow reduction, indirect reduction. We then placed a K wire multiple attempts to them starting times in a couple using a different the smaller in order to get the smaller pieces however wheezes were so small that they just any time for the K wire drill that they did rotate malrotated and remain at the articular surface worse. We placed 135 pin going from ulnar to radial we had great reduction and good maintenance of the articular surface at that point. We ensured that we also had good Sandoval which we did have. We then irrigated the incision with copious nonsterile saline. We truncated the implant to the K wire. We closed the capsule with 3-0 Ethibond and the intersection between the 2 extensor tendons with two 3-0 Vicryl. The skin was closed with 3-0 Monocryl and skin was closed with 4-0 nylon. Sterile dressings and a splint was applied. Tourniquet was placed for total working time of 2 hours. Patient taught procedure well no complication transfer recovery room in stable condition. Postoperative Pharmacy has prescriptions Discussed with risk for stiffness need for revision surgery and removing the pin in the OR in the office and risk for developing arthritis to the impaction injury and the comminution at the articular surface is quite severe. is aware and will proceed in and see how she does with therapy as well. Nonweightbearing right upper extremities Follow-up in 2 weeks Call with increased pain numbness tingling further issues arise Dragon disclaimer This note was generated with Enpirion dictation software. It may contain incorrect words, spelling, and punctuation that were not noted in checking the note before signing. Grafts/Implants Used: 10mm 2.0 screw/ 35 k wire, 2-0 vicryl
--- NOTE | 2021-01-18 11:30 | RAD_ITS ---
STUDY: X-RAY - RIGHT HAND REASON FOR EXAM: Female, 65 years old. ORIF TECHNIQUE: 2 view(s) of the hand. COMPARISON: Comparison is made with prior examination dated 01/06/2021. FINDINGS: Intraoperative imaging provided for open reduction internal fixation of the fracture at the base of the proximal phalanx of the fifth digit. RAD/Hand 2 Views IMPRESSION: ORIF of the fracture at the base of the proximal phalanx of the fifth digit. There is good alignment. Electronically Signed: Rustam Smallwood MD at 15:21 EST , Service support ,
[2021-01-18 11:31] LABS: Bedside Glucose 64 mg/dL (70-110)
[2021-01-18] MEDS: Mupirocin Ointment 22gm Tube 1 APPLIC (14:23)
[2021-01-18] MEDS: Bupivacaine Mpf 0.5% 30 ML VIAL (14:24)
--- NOTE | 2021-01-18 15:13 | SUR.PHASEI ---
Addendum entered by Jane Cavazos 01/18/21 19:22: AT 1745 IN PACU: NOTIFIED DR VILLASENOR THAT PATIENT HAVING SEVERE, SHARP SPASMS IN RIGHT HAND, PATIENT CONTINUES TO REPORT PAIN 10/10, TEARFUL, RESTLESS DESPITE DILAUDID 2 MG, FENTANYL 50 MCG, ATIVAN 0.5 MG ICE, ELEVATING, SPO2 IN HIGH-80'S ON ROOM AIR, PLACED BACK ON 2 L/MIN. DR VILLASENOR ALSO SPOKE WITH DR FUNK WHO WAS BEEN UPDATED, PLAN TO ADMIT FOR 23 HOUR OBSERVATION FOR PAIN MANAGEMENT, WILL CALL BACK WITH ORDERS. PATIENT AND MADE AWARE. Addendum entered by Jane Cavazos 01/18/21 17:11: PACU: AT 1703, NOTIFIED DR FUNK THAT PATIENT HAS BEEN MORE COMFORTABLE SINCE APPROX 1630 THROUGH STRUGGLING TO KEEP SPO2 >/= 92%; NOW STARTING TO HAVE SHARP SPASMS OF PAIN AGAIN, STATES IT'S WORSE THAN WHEN I BROKE IT. GASPING, NEAR TEARS. FENTANYL ORDERED. MOTION & SENSATION PRESENT IN FINGERS, BUT NOW REPORTING NUMBNESS HAND, NEEDS MUCH ENCOURAGMENT TO MOVE FINGERS AND REPOSITION HAND/ARM. DISCUSSED WITH DR FUNK. WILL CALL DR VILLASENOR. Addendum entered by Jane Cavazos 01/18/21 15:43: DR VILLASENOR AT BEDSIDE TO EVAL, REMOVED DRESSING, NEUROLOGICALLY INTACT, REDRESSED. DISCUSSED WITH PATIENT, EDUCATED ON SCREWS AND PERCUTANEOUS PINNING FOR PATIENT'S INJURY. ORDERED PERCOCET, CONTINUE CURRENT PLAN OF CARE. Original Note: IN PACU: EXQUISITE PAIN ON ARRIVAL FROM O.R., RECEIVED 50 MCG FENTANYL JUST PRIOR AND ANOTHER 50 MCG FENTANYL RIGHT AFTER FROM ANESTHESIA. PATIENT CONTINUES TO REPORT 10/10, GRIMACING, UNABLE TO TOLERATE ANY TOUCH TO MIDDLE FINGER OR REST HAND ON ICE PACK, GASPING, REPORTS SHARP, SHOOTING PAINS. NOTIFIED DR VILLASENOR WHO ORDERED TO LOOSEN DRESSING AND SHE WILL RETURN TO EVALUATE.
[2021-01-18 15:31] LABS: Bedside Glucose 85 mg/dL (70-110)
[2021-01-18] MEDS: oxyCODONE 5 MG Tablet PO (15:59)
[2021-01-18] MEDS: Acetaminophen 325 MG Tablet PO (15:59)
[2021-01-18] MEDS: HYDROmorphone 1 MG/ML Syringe IV (21:07)
[2021-01-18] MEDS: Lactated Ringers 1,000 ML 80 ML IV (21:07)
[2021-01-19] MEDS: Acetaminophen 325 MG Tablet PO ×2 (00:56→08:48)
[2021-01-19] MEDS: oxyCODONE 5 MG Tablet PO ×3 (00:56→12:53)
[2021-01-19 01:03] VITALS: BP 168/90; PULSE 73; RESP 18; TEMP 37.2; O2SAT 97
[2021-01-19] MEDS: HYDROmorphone 1 MG/ML Syringe IV ×2 (02:54→06:51)
[2021-01-19] MEDS: 0.9% NaCl Peripheral Flush Adult/Peds IV ×3 (02:54→12:09)
[2021-01-19 05:30] VITALS: BP 146/82; PULSE 67; RESP 17; TEMP 37.1; O2SAT 98
[2021-01-19] MEDS: Glimepiride 4 MG Tablet PO (08:45)
[2021-01-19] MEDS: amLODIPine 5 MG Tablet PO (08:46)
[2021-01-19] MEDS: metFORMIN HCl 1,000 MG Tablet 1000 MG PO (08:46)
[2021-01-19] MEDS: Sertraline 50 MG Tablet 25 MG PO (08:47)
[2021-01-19] MEDS: Allopurinol 300 MG Tablet PO (08:47)
[2021-01-19] MEDS: Lisinopril 10 MG Tablet PO (08:47)
[2021-01-19 09:10] VITALS: BP 148/91; PULSE 66; RESP 16; TEMP 36.7; O2SAT 99
[2021-01-19 09:35] VITALS: RESP 16; O2SAT 96
[2021-01-19] MEDS: Ondansetron 4 MG/2 ML Vial IV (12:09)
--- NOTE | 2021-01-19 12:29 | PN.ORTHO_ITS ---
Subjective: Patient states that the hand continues to hurt badly. If the fingers are touched or moved then it causes pains that can even shoot proximally into the forearm and elbow. She states that it hurts in all of the fingers with exception of the thumb. She states that she can move them but doesn't like to because it hurts. There was some minor improvement switching to the 15mg of oxycodone. Objective: Patient is seated up right in bed upon entering. Her arm is resting on a pillow beside her. She is not writhing in pain at the same time can tell there is discomfort. I did take the dressing down to examine the fingers. I did leave the plaster splint on as it did not feel too tight. She has tenderness with palpation or movements of the all the digits (even slight pains moving the thumb). Pains are worse in the 4th and 5th and even into the 3rd. The 2nd digit does not have as much tenderness as the others. Pains are less as I move proximal up the fingers. She has some tenderness dorsally around the incision site at the same time she has minimal tenderness on palpation over the metacarpals. She does have good capillary refill in all of the digits at the same time she has a lot of tenderness with this. She does not have tenderness in the forearm. She has normal distal radial pulses. Compartments of the upper arm are all soft. She does get get some radiating pains proximally when I tap on the plaster over the ulnar aspect of the hand. She has intact sensation throughout the entire extremity. - Physical Exam Vitals/I&O's: Vital Signs Temp Pulse Resp BP Pulse Ox 98.0 F 66 16 148/91 H 96 01/19/21 09:10 01/19/21 09:10 01/19/21 09:35 01/19/21 09:10 01/19/21 09:35 Oxygen Flow Rate (L/min) 2 Oxygen Delivery Method Room Air Weight: 216 lb 11.43 oz Body Mass Index (BMI) 34.9 Finger Stick Blood Glucose 85 Intake and Output for Last 24 Hours 01/17/21 01/18/21 01/19/21 23:59 23:59 23:59 Intake Total 2109 1700 / 1700 Balance 2109 1700 / 1700 General: Alert, Oriented x3, Well developed, Well nourished Extremities: Peripheral Pulses Normal, Tenderness Skin: Incision - minor swelling around the dorsal incision site. No erythema or discharge Microbiology Past 72 Hours 01/17/21 12:20 Interface Orders SARS-CoV-2 Antigen (Rapid) - Final Laboratory Results 01/18/21 15:09: POC Glucose 85 Current Medications Acetaminophen (Acetaminophen 325 Mg Tablet) 325 - 650 mg PO Q6H PRN PRN PRN Reason: BREAKTHROUGH PAIN Last Admin: 01/19/21 08:48 Dose: 650 mg Documented by: Allopurinol (Allopurinol 300 Mg Tablet) 300 mg PO DAILY [facility] Last Admin: 01/19/21 08:47 Dose: 300 mg Documented by: Amlodipine Besylate (Amlodipine 5 Mg Tablet) 5 mg PO DAILY [facility] Last Admin: 01/19/21 08:46 Dose: 5 mg Documented by: Ergocalciferol (Ergocalciferol 50,000 Unit Capsule) 50,000 unit PO [facility] Last Admin: 01/19/21 08:46 Dose: 50,000 unit Documented by: [facility] Admin: 01/19/21 08:45 Dose: 4 mg Documented by: Hydromorphone HCl (Hydromorphone 1 Mg/Ml Syringe) 1 mg IV Q4H PRN PRN PRN Reason: Pain Score 1-10 Last Admin: 01/19/21 06:51 Dose: 1 mg Documented by: Sodium Chloride () 250 mls @ 15 mls/hr IV .[id number] PRN PRN Reason: Saline Flush Sodium Chloride () 250 mls @ 15 mls/hr IV .[id number] PRN PRN Reason: Saline Flush Sodium Chloride () 250 mls @ 15 mls/hr IV .[id number] PRN PRN Reason: Additional IVPB Infusion Lisinopril (Lisinopril 10 Mg Tablet) 10 mg PO DAILY [facility] Last Admin: 01/19/21 08:47 Dose: 10 mg Documented by: Metformin HCl (Metformin Hcl 1,000 Mg Tablet) [facility] Last Admin: 01/19/21 08:46 Dose: 1,000 mg Documented by: Ondansetron HCl (Ondansetron 4 Mg/2 Ml Vial) 4 mg IV Q8H PRN PRN PRN Reason: Nausea Last Admin: 01/19/21 12:09 Dose: 4 mg Documented by: Oxycodone HCl (Oxycodone 5 Mg Tablet) 5 - 10 mg PO Q6H PRN PRN PRN Reason: BREAKTHROUGH PAIN Last Admin: 01/19/21 08:48 Dose: 10 mg Documented by: Oxycodone HCl (Oxycodone 5 Mg Tablet) 5 - 15 mg PO Q4H PRN PRN PRN Reason: Pain Score 6-10 Sertraline HCl (Sertraline 50 Mg Tablet) 25 mg PO DAILY [facility] Last Admin: 01/19/21 08:47 Dose: 25 mg Documented by: Sodium Chloride (0.9% Nacl Peripheral Flush Adult/Peds) 5 - 15 ml IV UD PRN PRN Reason: SALINE FLUSH Last Admin: 01/19/21 12:09 Dose: 10 ml Documented by: Sodium Chloride (0.9% Saline Lock 10 Ml Syringe) 10 - 40 ml IV UD PRN PRN Reason: SALINE FLUSH Zolpidem Tartrate (Zolpidem Tartrate 5 Mg Tablet) 5 mg PO QHS PRN PRN PRN Reason: INSOMNIA Medical Necessity - Tobacco Use Smoking Status: Never smoker Tobacco Use: Non-smoker Assessment/Plan All Active Problems Left ureteral calculus (Acute) Sprain of ankle or foot, right (Acute) Patient seen at bedside today after being put on the floor for 23 hour observation. She saw some very minor improvement in her pains switching to the oxycodone at the same time continues to have pretty significant pains with some radiating proximally. She is neurovascularly intact throughout the extremity and the compartments are soft throughout. The distribution/location of her pains on palpation of the hand are odd encompassing all the digits (even a little in the thumb.) HEr description of the type and the locale of the pain make nerve irritation likely (possibly positional vs tourniquet). I did discuss patients status with Dr. Calvo who is going to continue oxycodone and add gabapentin for nerve pains. Patient is to follow-up in office saturday with Dr. Calvo at the same time can call tomorrow in the office with update.
[2021-01-19 13:25] VITALS: BP 125/60; PULSE 68; RESP 16; TEMP 36.8
--- NOTE | 2021-01-19 16:00 | PHA.DC.MC ---
Pharmacy Service has performed discharge medication reconciliation and counseling for this patient. The patient was counseled on the following discharge medications and changes in medications for homegoing were reviewed. 1. GABAPENTIN 2. PERCOCET - NOTE: ALSO HAS NORCO ORDERED- PT STILL HAS AT HOME, COUNSELED AND KNOWS NOT TO TAKE BOTH. The Reason for Use, instructions for use, and potential side effects were reviewed for all new medications. The patient's questions regarding all of their medications were answered. The patient was able to verbally demonstrate an understanding of their discharge medications. Home Medications Ergocalciferol [Vitamin D] 50,000 unit PO TH 03/11/19 Glimepiride 4 mg PO DAILY 03/11/19 Lisinopril [Zestril] 10 mg PO DAILY 03/11/19 Metformin HCl 1,000 mg PO DAILY 03/11/19 Allopurinol [Zyloprim] 300 mg PO DAILY 02/05/20 Sertraline HCl [Zoloft] 25 mg PO DAILY 02/05/20 Amlodipine [Norvasc] 5 mg PO DAILY 04/19/20 Hydrocodone Bitart/Apap 5-325 [Wallis 5MG-325MG] 1 tab PO Q4H PRN PRN 04/20/20 Oxycodone HCl/Acetaminophen [Percocet 5/325] 1 - 2 tab PO Q6H PRN PRN 5 Days #28 tab 01/18/21 Gabapentin [Neurontin] 100 mg PO TID #90 cap 01/19/21 The patient's discharge medication list was reviewed for discrepancies and discrepancies were resolved.
--- NOTE | 2021-01-19 17:18 | NURSING ---
Student documentation reviewed.
== END 2021-01-19 17:45 | disposition home or self-care (01) ==
LOC: SDC 19:16 → MS3 19:16
PROVIDERS: Admitting Provider Orthopaedic Surgery; PCP Family Medicine; Referring Provider Orthopaedic Surgery; Visit Provider Orthopaedic Surgery
PROC: (CPT 26615; principal; 2021-01-18 11:15)
DX: S62.316A Displaced fracture of base of fifth metacarpal bone, right hand, initial encounter for closed fracture (principal); W18.49XA Other slipping, tripping and stumbling without falling, initial encounter; Y93.89 Activity, other specified; Y92.9 Unspecified place or not applicable; Y99.9 Unspecified external cause status; F32.9 Major depressive disorder, single episode, unspecified; Z79.899 Other long term (current) drug therapy; I10 Essential (primary) hypertension; E11.9 Type 2 diabetes mellitus without complications; Z79.84 Long term (current) use of oral hypoglycemic drugs
CPT/HCPCS: 01830; 26615; 73120; 76000; 82962; 87426; 96361; 96374; 96375; 96376; 99218; C1713; C9803; J7120; A4216; G0378; G0379; J2405

== ENCOUNTER 2021-02-23 13:00 | Outpatient (RCR) | payer MEDICARE, SELFPAY ==
--- NOTE | 2021-01-27 12:25 | HP.OTEVAL ---
Patient's Visit Information ADILSON STANFORD is a 65 year old F, referred to Occupational Therapy by Dr. Birgit Calvo DO, with a diagnosis of right 5th LF proximal phalx fx. Date of Evaluation: 01/27/21 Occupational Therapist: Endi Carvajal, OTTyrone/Shukri, CHT - Subjective This 65 year old female was seen for OT eval with Dx. of a right 5th priximal phalanx fx. pt states she had a fall on 01/06/21 and had follow up sx on 01/18/21. pt arrives with orders for custom orthosis for pt to use while fx is healing, and PIP ROM. pt states she is left handed. pt is currently limited with ADLs and IADLs - pt has pain, swelling and limited use while fx is healing. - Pain right hand 4 Pain Intensity Range: 4, 8 - ROM PIP: right RF 0/75 left 0/100 LF 0/45 left 0/95 DIP: right RF 0/5 left 0/50 right LF 0/5 left 0/45 ROM Comments: pt demo with swelling and limited PIP DIP motion of right LF and RF - Strength Equity Director: right NT left 50# Lateral Pinch: right NT left 14# Tripod Pinch: right NT left 14# - Edema PIP: right little finger 5.5 left 5.0 - Sensation Sensation Comments: tingling at times but with elevation goes away - Quick DASH-Disab of Arm,Shoulder& Hand Quick DASH Score: 85.0000 - Goals Goal:: strength will be added at later date per Goal:: pt will demo a increase in right LF and RF PIP Flex by 15* or greater to decrease risk of joint stiffness while fx site is healing. after fx healed pt will demo the ability to form a composite fist to perform ADLs and IADLS by d/c Goal:: pt will report pain no greater than 2/10 with use of right hand with ADLs and IADLs by d/c Goal:: pt will demo ind. doffing/donning of orthosis by end of 1st session. pt will demo understanding of returning to clinic if skin irritation occurs to have therapist adj. orthosis. by end of 1st session. - Rehabilitation General Assessment: pt demo need of custom orthosis following a right 5th prox. phalanx fx. pt 1 week 3 days s/p from a 5th proximal phalanx pinning- pt sig. limited with use of right hand with ADLs and IADLs at this time. Pt would benefit from skilled OT services 1-2 x 6 weeks- therapist jatin. custom ulnar gutter orthosis to provide support and protection while fx is healing. THerapist ed. pt on need to keep tiffany tape to keep alignment, pt demo understanding. therapist ed. pt in PIP ROM. pt demo understanding- theapy will make adj. to pts POC as pt released to perform more per Dr. chen. Rehabilitation Potential: Good - Anticipated Interventions A/AAROM/PROM, Strengthening, Edema Control, Scar Care, Triggerpoint Release, Wound Care, Modalities, Orthoses, Joint Protection/Energy Conservation - Visit Plan Frequency: 1x/Week Duration: 4 Weeks TEXT: Thank you for the opportunity to evaluate your patient. For Medicare and Medicare HMO plans, please review the plan of care and approve it. It will need to be FAXED BACK to us at [phone] for Medicare purposes. Please let me know if there are questions or concerns regarding this plan of care. Physician Signature: Date:
--- NOTE | 2021-07-17 12:34 | HP.OT.NRP ---
ADILSON Kavon MIOCARRIEEulalio was seen in my office for initial evaluation on 01/27/21. The following Plan of Care was established for this patient: Initial Frequency: 1x/Week Initial Duration: 4 Weeks Plan: Continue with PIP ROM only. Pt may have pin removed next doctor's visit, 02/28/2021. Anticipated Interventions: A/AAROM/PROM, Strengthening, Edema Control, Scar Care, Triggerpoint Release, Wound Care, Modalities, Orthoses, Joint Protection/Energy Conservation This patient was last seen in our office 02/23/21. Pertinent comments regarding their Occupational therapy will appear below: pt was seen for 5 OT visits to work on ROM- pt was to get pin removed 02/28/21. pt has not returned to therapy and due to time lapse in services pt is d/c. At this point I will be discontinuing this patient from occupational therapy. I would be happy to see this patient again in the future if found appropriate by the physician. Thank you! Enid Carvajal, OTR/L, CHT
== END 2021-02-23 19:00 | disposition home or self-care (01) ==
LOC: OT 13:00
PROVIDERS: PCP Family Medicine; Referring Provider Orthopaedic Surgery; Visit Provider Orthopaedic Surgery
DX: S69.91XD Unspecified injury of right wrist, hand and finger(s), subsequent encounter (principal)
CPT/HCPCS: 97110; 97140; 97166; 97530; 97760

== ENCOUNTER 2021-03-15 07:36 | Day surgery (SDC) | payer MEDICARE, SELFPAY ==
[2021-03-15] VITALS (7 sets, daily range): BP systolic 132–151; BP diastolic 59–79; PULSE 60–66; RESP 16–18; TEMP 36.2–36.5; O2SAT 95–100; BMI 35.9
--- NOTE | 2021-03-15 07:00 | HP_ITS ---
I have re-examined the patient. There are no clinical changes since date of exam. Intake Intake Visit Reasons: Right hand Chief Complaint: R hand sx Allergies acetaminophen [From Vicodin] Allergy (Verified 02/14/21 10:43) Chest tightness hydrocodone bitartrate [From Vicodin] Allergy (Verified 02/14/21 10:43) Chest tightness PFSH Social History (Updated 03/01/21 @ 08:14 by LACHELLE Arroyo) Smoking Status: Never smoker HPI Right hand: Surgical H&P: Yes Details: Parts of this documentation were recorded by a scribe, this documentation accurately reflects the service provided and the decisions made by me, Dr. Birgit Calvo DO 02/28/21 [id number]. ADILSON STANFORD is a 65 year old F here today for F/u on rt hand fx. DOS: 01/18/2021. 6 week post op. Patient has been in OT. She still is unable to fully extend the right 5th digit. Pin in place. We will remove the pin today. Will repeat xrays of the patient. Denies numbness, tingling or other associated symptoms. Some swelling noted. Ortho Exam General General: Yes no acute distress Neurologic: Yes alert, Yes oriented x3 Psychologic: Yes reasonable and appropriate Right Wrist/Hand Date of Surgery: 01/18/21 Skin/Wound: Yes healing, Yes suture/carine removed, Yes Swelling (minimal ), Yes Ecchymosis (Only over last digit metacarpal) Contralateral Normal: Yes Right Wrist: Yes ROM-Extension 0-60 (full extension with hand on table), ROM- Flexion 0-80 (80% flexion) and TTP Fracture site (minimal) Sensation: Radial: I, Median: I Left Wrist/Hand Skin/Wound: Yes Swelling (minimal ), Yes Ecchymosis (Only over last digit metacarpal) Right Foot/Ankle Skin/Wound: Yes suture/carine removed Assessment & Plan Problems 1. Orthopedic aftercare Z47.89 Plan - Dr. Birgit Calvo DO Reviewed the xrays with patient today. The pin was taken out in the office today tip was intact and xray shows that the pin was completely removed. Educated the patient that a screw is backing out and that the screw needs to come out. Patient signed consent today for right proximal phalanx hardware removal. The patient and her are taking a trip and the hardware will come out when they get back from the trip. Potential DOS: 03/15/21. Patient should continue with ROM exercises. She will see OT one more time. Patients questions were answered. She was advised to call with question, concerns, or worsening symptoms. Patient is in agreement with plan. Orders Orders: Hand Min 3 Views 02/28/21 Z47.89 Coding Level of Care Code Attention Dentist/Owner Diagnoses Orthopedic aftercare Z47.89 COVID (Procedure Consent) Procedure Criteria Procedure Criteria: Yes Elective The surgeon/proceduralist and patient have discussed in detail the risk of exposure to and/or potential harm posed by the COVID-19 virus with having a surgery/procedure at this time versus the risk of? delaying the surgery/procedure. It is not possible to know either the risk of delaying the surgery or procedure or chance of getting an infection with perfect accuracy, but a joint decision was made between the patient and the surgeon/proceduralist ?to proceed at this time with the scheduled surgery/procedure as indicated on the consent form.
[2021-03-15] MEDS: Lactated Ringers 1,000 ML 100 ML IV ×2 (08:12→10:53)
--- NOTE | 2021-03-15 09:05 | RAD_ITS ---
STUDY: X-RAY - RIGHT HAND, ATTENTION FIFTH FINGER REASON FOR EXAM: Female, 65 years old. Hardware REMOVAL PROXIMAL PHALANX 5TH FINGER TECHNIQUE: 2 fluoroscopic view(s) of the finger were obtained. Dose area product: 0.877 cGycm2 COMPARISON: None. FINDINGS: Fixation screw at the base of the fifth proximal phalanx initially identified with subsequent image showing removal. RAD/Finger(s) Min 2 Views IMPRESSION: Fluoroscopic guidance for removal of fifth proximal phalanx hardware Electronically Signed: Ashish Alvarenga MD ([place]) at 15:18 EDT , Service support ,
[2021-03-15 09:15] LABS: Bedside Glucose 80 mg/dL (70-110)
[2021-03-15] MEDS: Cefazolin 2 GM in 0.9% Normal Saline 100 ML IV (09:20)
--- NOTE | 2021-03-15 10:12 | DCINST_ITS ---
Discharge Diet: No Restrictions - use hand as tolerated, keep dressing clean,dry and intact, follow up in 2 weeks for suture removal Discharge Activity: May Not Drive May shower in (days): 1 Ice area for (Minutes): 20 - Every hour while awake. Weight Bearing Status: Weight bearing as tolerated Keep extremity elevated above heart level: Operative Extremity Call your doctor if your incision/area has: Continuous Slow Oozing, Sudden Increased Bleeding, Increased Pain/ Swelling, Increased Redness, Foul Smelling Discharge Call your doctor if you observe: Fever of 101 or Higher, Coldness, Increased Pain, Numbness or Tingling, Change in Color, Calf discomfort Allergies/Adverse Reactions: Allergies hydrocodone bitartrate [From Vicodin] Allergy (Verified 03/08/21 08:59) Chest tightness Medications to take at Discharge Ergocalciferol [Vitamin D] 50,000 unit PO TH 03/11/19 Glimepiride 4 mg PO DAILY 03/11/19 Lisinopril [Zestril] 10 mg PO DAILY 03/11/19 Metformin HCl 1,000 mg PO DAILY 03/11/19 Allopurinol [Zyloprim] 300 mg PO DAILY 02/05/20 Sertraline HCl [Zoloft] 25 mg PO DAILY 02/05/20 Amlodipine [Norvasc] 5 mg PO DAILY 04/19/20 Gabapentin [Neurontin] 100 mg PO TID #90 cap 01/19/21 Primary Care Physician: Tyree Goldman MD [Primary Care Provider] - Test Results: Test results from this visit will be discussed in further detail at your follow- up appointment, if applicable. Please Follow Up With: Birgit Calvo, DO - [phone]
--- NOTE | 2021-03-15 10:13 | PCM.OPRPT ---
Report of Operation Date of Procedure: 03/15/21 Pre-Operative Diagnosis: right little finger painful hardware/loose hardware Post-Operative Diagnosis: same Surgery/Procedure Performed:: removal of fifth finger screw 2.0mm synthes rn bone marrow transplant: Rahul Interiano Type of Anesthesia:: General Anesthesiologist: Martin Carroll Specimen's removed: 2.0 screw Estimated Blood Loss (mL): min Fluids Replaced: 300cc lr Description of Procedure: Preop note Patient is 65-year-old female with history about 7 to 8 weeks ago of ORIF of her right proximal phalanx. Upon repeat x-rays her the interfrag screw has backed out however the fracture site appears to be healed we did talk about removing the screw as it is close to the extensor tendons in my worry is that it irritates the tendon and can cause rupture. This was discussed with family. Risk benefits and alternatives were discussed with patient. Risk include but not limited to blood loss, blood clot, infection, neurovascular, failure procedure, loss of life and loss of limb. Patient is aware like proceed with right painful screw removal loose screw removal. Operative note Patient sees preoperatively her. Right hand was marked for the finger was marked. Patient brought to the operating room placed supine on the operating table. Signed, anesthesia, antibiotics were administered. The right arm was prepped and draped usual sterile technique with a tourniquet on her upper arm. All bony promises well-padded SCDs placed on her bilateral lower extremities. We used fluoroscopy to cristla out our incision. The right limb arm was then elevated exsanguinated tourniquet was raised to a pressure of 250 torr. Timeout was performed. We then made a small about centimeter incision using her previous incision over top of the area where the screw was palpated. We then dissected down with tenotomy the level of the screw and screw was removed after removing some scar tissue from the dorsal aspect. We then remove the screws entirely take a picture of the fluoroscopy to prove that we had remove the screws into Jesu. The incision was irrigated with copious muscle sterile saline. Tourniquet was deflated. The incision was closed with interrupted 4-0 nylon stitches. Sterile dressings were applied. Patient taught procedure well no complication transfer recovery room in stable condition Postop note Nonweightbearing right upper extremity Encourage range of motion Follow-up in 2 weeks for suture removal Use hand as tolerated Discussed with This note was generated with Active [employer] software. It may contain incorrect words, spelling, and punctuation that were not noted in checking the note before signing.
[2021-03-15] MEDS: Mupirocin Ointment 22gm Tube 1 APPLIC (10:17)
[2021-03-15] MEDS: Lidocaine 1% (30 ml sdv) 30 ML Vial (10:18)
[2021-03-15 11:30] LABS: Bedside Glucose 72 mg/dL (70-110)
[2021-03-15] MEDS: oxyCODONE 5 MG Tablet 10 MG PO (12:10)
[2021-03-15] MEDS: Acetaminophen 500 MG Tablet 1000 MG PO (12:10)
== END 2021-03-15 12:44 | disposition home or self-care (01) ==
LOC: SDC 07:37 → AC 07:39
PROVIDERS: PCP Family Medicine; Referring Provider Orthopaedic Surgery; Visit Provider Orthopaedic Surgery
PROC: (CPT 26320; principal; 2021-03-15 09:00)
DX: T84.84XA Pain due to internal orthopedic prosthetic devices, implants and grafts, initial encounter (principal); Y83.8 Other surgical procedures as the cause of abnormal reaction of the patient, or of later complication, without mention of misadventure at the time of the procedure; I10 Essential (primary) hypertension; E78.00 Pure hypercholesterolemia, unspecified; F32.9 Major depressive disorder, single episode, unspecified; E11.9 Type 2 diabetes mellitus without complications; Z78.0 Asymptomatic menopausal state; Z87.442 Personal history of urinary calculi; Z79.84 Long term (current) use of oral hypoglycemic drugs; Z79.899 Other long term (current) drug therapy
CPT/HCPCS: 01830; 26320; 73140; 76000; 82962; J7120; J2405

== ENCOUNTER → 2021-07-14 08:54 | Outpatient (CLI) | payer MEDICARE, SELFPAY ==
[2021-07-14 09:55] LABS: Hemoglobin A1c 6.8 % (3.8-5.6)
[2021-07-14 10:00] LABS: AST(SGOT) 12 U/L (15-37); Alanine Aminotransfer ALT/SGPT 20 U/L (13-56); Albumin, Serum 3.6 g/dL (3.2-5.0); Alkaline Phosphatase 73 U/L (45-117); Anion Gap 4 (5-15); BUN 24 mg/dL (7-18); BUN/Creat Ratio 17.6 RATIO (10-20); Calcium,Total 9.3 mg/dL (8.5-10.1); Chloride 109 mmol/L (98-107); Cholesterol 157 mg/dL (200); Creatinine, Serum 1.36 mg/dL (0.55-1.02); EST Glomerular Filtration Rate 41 mL/min (>60); Est Glom Filt Rate - Afr Amer 50 mL/min (>60); Globulin 3.5 g/dL (2.2-4.2); Glucose 89 mg/dL (74-106); High Density Lipoprotein 46 mg/dL; Potassium 4.5 mmol/L (3.5-5.1); Protein, Total 7.1 g/dL (6.4-8.2); Sodium Level 141 mmol/L (136-145); Triglycerides 251 mg/dL; Very Low Density Lipoprotein 50 mg/dL (5-40)
[2021-07-14 10:03] LABS: Vitamin D,25 Hydroxy 81.6 ng/mL
== END ==
LOC: LAB 08:56
PROVIDERS: PCP Family Medicine; Visit Provider Family Medicine
DX: E11.9 Type 2 diabetes mellitus without complications (principal); I10 Essential (primary) hypertension; E55.9 Vitamin D deficiency, unspecified; E78.5 Hyperlipidemia, unspecified
CPT/HCPCS: 36415; 80053; 80061; 82306; 83036

== ENCOUNTER 2025-03-29 14:49 | Emergency (ER) | payer MEDICARE, SELFPAY ==
[2025-03-29 14:49] VITALS: BP 174/89; PULSE 87; RESP 18; TEMP 36.2; O2SAT 98; BMI 34.3
--- NOTE | 2025-03-29 15:11 | RAD_ITS ---
PROCEDURE: FOREARM 2 VIEWS 03/29/2025 REASON FOR EXAM: PAIN/FALL TECHNIQUE: 2 view(s) of the right forearm COMPARISON: None FINDINGS: Two views of the right forearm demonstrate diffuse osteopenia of the osseous structures. There are no fractures or dislocations. Soft tissue swelling is noted. Arthritic changes are seen involving the 1st metacarpal trapezium joint. RAD/Forearm 2 Views IMPRESSION: No fractures or dislocations are seen. Soft tissue swelling of the right forearm is noted. Arthritic changes of the 1st metacarpal trapezium joint is noted. RECOMMENDATION: If the patient's pain continues or worsens, a follow-up x-ray or CT examination in 10-14 days is recommended to exclude an occult fracture. Reading Location: [id number]
--- NOTE | 2025-03-29 15:31 | EDS_ITS ---
HPI History of Present Illness Chief Complaint: Upper Extremity Injury Informant: patient Narrative Narrative: 69-year-old female presenting to the emergency room with right arm pain. Patient states that she was out taking care of the house when she slipped in mu d. She tried to just get yourself and sustained a FOOSH injury to the right forearm and wrist. She notes pain from the hand to the elbow. She notes swelling over the dorsal wrist and swelling of the posterior lateral forearm. She denies any shoulder discomfort. No head neck back or leg symptoms. She is left-handed. [facility] Medical History Diabetes HTN (hypertension) Home Medications ?Medication ?Instructions ?Recorded ?Last Taken ?Type ergocalciferol (vitamin D2) 1,250 50,000 unit PO TH RAMSEY PPLEMENT 03/11/19 03/25/25 History mcg (50,000 unit) capsule lisinopril 10 mg tablet 10 mg PO DAILY BP 03/11/19 0 03/29/25 History metformin 500 mg tablet 1,000 mg PO DAILY DM 9 03/29/25 History allopurinol 300 mg tablet 300 mg PO DAILY gout 0 03/29/25 History sertraline 25 mg tablet 25 mg PO DAILY depression 03/29/25 History amlodipine 5 mg tablet 5 mg PO DAILY BP 04/19/20 History Allergy/AdvReac Type Severity Reaction Status Date / Time hydrocodone bitartrate (From Allergy Chest Verified 03/29/25 14:49 Vicodin) tightness Surgical History History of hand surgery Social History Smoking Status: Never smoker ROS ROS ED Constitutional Constitutional ED: Denies chills, fever(s) or weight loss Eyes Eyes: Denies change in vision or diplopia ENT ENT ED: Denies ear pain, rhinorrhea or sore throat Cardiovascular Cardiovascular: Denies chest pain, orthopnea, palpitations or racing heartbeat Respiratory/Chest Respiratory/Chest: Denies cough, dyspnea or orthopnea Gastrointestinal Gastrointestinal: Denies abdominal pain, diarrhea, nausea or vomiting Genitourinary Genitourinary ED: Denies dysuria, hematuria or urinary frequency Musculoskeletal Musculoskeletal: Reports other Details: See history of present illness ; Denies arthralgias, back pain, myalgias or neck pain Integumentary Denies abscess or rash Neurologic Neurologic: Denies headache(s) or weakness Psychiatric Psychiatric: Denies anxiety, depression, suicidal ideation or suicidal thoughts Endocrine Endocrinology: Denies polydipsia, polyphagia or polyuria Allergic/Immunologic Allergic/Immunologic ED: Denies mouth swelling, tongue swelling or urticaria EXAM Physical Exam Const Vital Signs: 03/29/25 14:49 Temperature 97.2 F L Temperature Source Temporal Pulse Rate 87 Respiratory Rate 18 Blood Pressure 174/89 H Blood Pressure Mean 117 Pulse Ox 98 Oxygen Delivery Method Room Air Positive well nourished and well developed General Appearance ED: well developed HEENT Reports normocephalic, head/scalp atraumatic and moist mucous membranes Eyes PERRL and EOMs intact bilaterally Neck full ROM, no lymphadenopathy, supple and no JVD Resp normal respiratory effort and clear to auscultation bilaterally Cardio regular rate, regular rhythm and no murmurs GI normal to inspection, nondistended, normoactive bowel sounds and non-tender Palpation: soft Back/Spine no CVA tenderness and normal ROM Extremity Extremity Narrative: There is some swelling over the dorsal surface at the level of the wrist. This area is tender to palpation. There is no styloid tenderness. I am unable to properly assess the radial ulnar ligament due to discomfort. Patient has hematoma over the proximal dorsal lateral surface of the forearm. There is no olecranon tenderness. There is no radial head tenderness. General Extremety ED: Negative for edema General Extremity: Negative for edema Neuro oriented x3 and CN's II-XII intact bilaterally Sensorium / Orientation: alert Motor Exam: strength 5/5 throughout Psych mental status grossly normal Mood & Affect: Negative for depressed or tearful Skin no rashes or lesions noted and no wounds MDM MDM MDM Narrative Medical decision making narrative: Differential diagnosis includes sprain strain tendon injury fracture ligamentous tear ligamentous strain neurovascular injury Forearm x-rays were obtained by nursing protocol. My independent interpretation is no acute fracture. We talked about ligamentous injuries including strains and tearing. Will place her in a wrist cock up splint. Would recommend RICEM therapy. If continued symptoms 10 to 14 days would recommend PCP or orthopedic follow-up. History & Record Review Discussion w/independent historian: Patient Radiography Diagnostic Testing: Clinical Impression(s) from Imaging Studies Forearm X-Ray 03/29/25 15:11 IMPRESSION: No fractures or dislocations are seen. Soft tissue swelling of the right forearm is noted. Arthritic changes of the 1st metacarpal trapezium joint is noted. RECOMMENDATION: If the patient's pain continues or worsens, a follow-up x-ray or CT examination in 10-14 days is recommended to exclude an occult fracture. Reading Location: [facility] Discharge Plan Triage Chief Complaint: Upper Extremity Injury ED Provider: Ghanshyam Elkins Dx/Rx/DC Orders Clinical Impression: Fall, Hematoma of right forearm, Right wrist sprain Instructions: ED Soft Tissue Contusion, ED Wrist Sprain Prescriptions: No Action metformin 500 MG tablet 1,000 mg PO DAILY ergocalciferol (vitamin D2) 50,000 UNIT capsule 50,000 unit PO TH Patient Comments: TAKE ONE CAPSULE BY MOUTH EVERY WEEK lisinopril 10 MG tablet 10 mg PO DAILY Patient Comments: Take one by mouth daily sertraline 25 MG tablet 25 mg PO DAILY allopurinol 300 MG tablet 300 mg PO DAILY amlodipine 5 MG tablet 5 mg PO DAILY Primary Care Provider: Tyree Goldman Referrals: Reza Sampson DO [Med Staff - Active Staff] - 10-14 Days if not better (for orthopedic evaluation if needed) Tyree Goldman MD [Primary Care Provider] - 10-14 Days if not better Activity Restrictions/Additional Instructions: If you are not improving in 10 to 14 days or have concerns hide recommend PCP follow-up or follow-up with orthopedics. If you do not have an orthopedist you may follow-up with Dr. Sampson who's contact information is attached. Print Language: Hebrew Disposition Disposition: Home, Self Care
== END 2025-03-29 16:09 | disposition home or self-care (01) ==
PROVIDERS: Emergency Provider Emergency Medicine; PCP Family Medicine; Visit Provider Emergency Medicine
DX: S50.11XA Contusion of right forearm, initial encounter (principal); E11.9 Type 2 diabetes mellitus without complications; S63.91XA Sprain of unspecified part of right wrist and hand, initial encounter; I10 Essential (primary) hypertension; Z79.899 Other long term (current) drug therapy; Z79.84 Long term (current) use of oral hypoglycemic drugs; W01.0XXA Fall on same level from slipping, tripping and stumbling without subsequent striking against object, initial encounter; Y92.019 Unspecified place in single-family (private) house as the place of occurrence of the external cause
CPT/HCPCS: 73090; 99283